=== PATIENT | male | born 1945 | race Caucasian/White ===

== ENCOUNTER → 2019-01-14 09:55 | Outpatient (CLI) | payer OTHER, SELFPAY ==
[2019-01-14 11:06] LABS: Alanine Aminotransferase 20 IU/L (21-72); Albumin 4.5 g/dL (3.5-5.0); Albumin Globulin Ratio 1.7 (1.0-2.8); Alkaline Phosphatase 59 U/L (38-126); Aspartate Aminotransferase 37 IU/L (17-59); Bilirubin Total 1.2 mg/dL (0.2-1.3); Blood Urea Nitrogen 21 mg/dL (9-20); Calcium 10.4 mg/dL (8.4-10.2); Carbon Dioxide 32 mmol/L (22-32); Chloride 101 mmol/L (98-107); Cholesterol 264 mg/dL (140-199); Estimated Glomerular Filt Rate > 60.0 mL/min (>60); Globulin 2.7 g/dL (1.7-4.1); Glucose 97 mg/dL (80-110); HDL Cholesterol 50 mg/dL (40-60); HEMOLYSIS < 15 (0-50); Potassium 4.9 mmol/L (3.4-5.1); Sodium 140 mmol/L (137-145); Total Protein 7.2 g/dL (6.3-8.2)
[2019-01-14 11:22] LABS: LDL Cholesterol Calculated 190 mg/dL (<100); Triglycerides 122 mg/dL (35-150)
== END ==
PROVIDERS: Visit Provider Internal Medicine
DX: Z13.1 Encounter for screening for diabetes mellitus (principal); Z13.6 Encounter for screening for cardiovascular disorders
CPT/HCPCS: 36415; 80053; 80061

== ENCOUNTER → 2019-04-12 10:21 | Outpatient (CLI) | payer OTHER, SELFPAY ==
[2019-04-12 11:20] LABS: Alanine Aminotransferase 13 IU/L (21-72); Albumin 4.4 g/dL (3.5-5.0); Albumin Globulin Ratio 1.4 (1.0-2.8); Alkaline Phosphatase 59 U/L (38-126); Aspartate Aminotransferase 29 IU/L (17-59); Bilirubin Total 0.7 mg/dL (0.2-1.3); Blood Urea Nitrogen 24 mg/dL (9-20); Calcium 10.1 mg/dL (8.4-10.2); Carbon Dioxide 30 mmol/L (22-32); Chloride 103 mmol/L (98-107); Cholesterol 198 mg/dL (140-199); Estimated Glomerular Filt Rate > 60.0 mL/min (>60); Globulin 3.1 g/dL (1.7-4.1); Glucose 93 mg/dL (80-110); HDL Cholesterol 45 mg/dL (40-60); HEMOLYSIS < 15 (0-50); LDL Cholesterol Calculated 132 mg/dL (<100); Potassium 4.8 mmol/L (3.4-5.1); Sodium 141 mmol/L (137-145); Total Protein 7.5 g/dL (6.3-8.2); Triglycerides 107 mg/dL (35-150)
== END ==
PROVIDERS: PCP Internal Medicine; Visit Provider Internal Medicine
DX: E78.00 Pure hypercholesterolemia, unspecified (principal); I25.10 Atherosclerotic heart disease of native coronary artery without angina pectoris
CPT/HCPCS: 36415; 80053; 80061

== ENCOUNTER → 2020-05-25 17:03 | Outpatient (CLI) | payer OTHER, SELFPAY | PROVIDERS: PCP Internal Medicine; Visit Provider Registered Nurse Diabetes Educator | DX: L60.9 Nail disorder, unspecified (principal) | CPT/HCPCS: 87070; 87075; 87077; 87102; 87107; 87186; 87205 ==

== ENCOUNTER → 2022-11-10 08:44 | Outpatient (CLI) | payer MEDICARE, SELFPAY ==
[2022-11-10 10:24] LABS: Alanine Aminotransferase 18 IU/L (<50); Albumin Globulin Ratio 1.7 (1.0-2.8); Alkaline Phosphatase 38 U/L (38-126); Aspartate Aminotransferase 26 IU/L (17-59); BUN Creatinine Ratio 25.6 (6-22); Bilirubin Total 0.3 mg/dL (0.2-1.3); Blood Urea Nitrogen 30 mg/dL (9-20); Calcium 9.5 mg/dL (8.4-10.2); Carbon Dioxide 28 mmol/L (22-32); Chloride 103 mmol/L (98-107); Cholesterol 219 mg/dL (140-199); Estimated Glomerular Filt Rate > 60 mL/min (>60); Globulin 2.4 g/dL (1.7-4.1); Glucose 98 mg/dL (80-110); HDL Cholesterol 44 mg/dL (40-60); HEMOLYSIS < 15 (0-50); LDL Cholesterol Calculated 152 mg/dL (<100); Potassium 4.3 mmol/L (3.4-5.1); Sodium 137 mmol/L (137-145); Total Protein 6.4 g/dL (6.3-8.2); Triglycerides 114 mg/dL (35-150)
== END ==
PROVIDERS: PCP Internal Medicine; Referring Provider Internal Medicine; Visit Provider Internal Medicine
DX: E78.00 Pure hypercholesterolemia, unspecified (principal); I25.10 Atherosclerotic heart disease of native coronary artery without angina pectoris
CPT/HCPCS: 36415; 80053; 80061

== ENCOUNTER 2023-02-01 10:49 | Day surgery (SDC) | payer MEDICARE, SELFPAY ==
[2023-01-24 15:02] VITALS: BMI 24.2
[2023-02-01] VITALS (11 sets, daily range): BP systolic 112–164; BP diastolic 62–99; PULSE 62–78; RESP 12–18; TEMP 36.2–36.4; O2SAT 94–97; BMI 24.3
--- NOTE | 2023-02-01 11:19 | PM.PREOP ---
Pre-operative Note Interval Note History & Physical reviewed/Exam performed by Physician: Yes Changes to H&P: No
[2023-02-01] MEDS: LACTATED RINGERS 1,000 ML 100 ML IV ×2 (11:31→13:15)
[2023-02-01] MEDS: CEFAZOLIN 2 GM/100 ML PREMIX 100 ML IV (12:06)
[2023-02-01] MEDS: BUPIVACAINE 0.5% (PF) 30 ML VIAL INJ (12:15)
--- NOTE | 2023-02-01 12:31 | SUR.OPER ---
Supine on padded OR bed, head on pillow, arms padded and tucked at sides, legs uncrossed, safety belt at thigh, tape over blanket over lower legs .
--- NOTE | 2023-02-01 13:41 | P.OP_ITS ---
Operative Date/Time/Diagnoses Date of procedure: 02/01/23 Time of procedure: 13:41 Pre-op diagnosis: bilateral inguinal hernia Post-op diagnosis: same Procedure & Clinicians Procedure: laparoscopic repair of bilateral inguinal hernia Same procedure as scheduled: Yes Indications: symptomatic bilateral inguinal hernia Surgeon: Moisés Esquivel Vegetable Packer: Navin Bustillo Anesthesia Type: General Operative Notes Findings: bialteral direct floor defect. Small indirect hernia right side Estimated Blood Loss (mL): 20 Procedure in detail: The patient was brought to the operating room and placed supine on the table. Bilateral sequential compression devices were applied. General anesthesia was induced and they were intubated with an endotracheal tube. A mancera cath was placed in sterile fashion. They received antibiotics prior to skin incision. They were prepped and draped in sterile fashion. Time-out performed. The skin was infiltrated with 0.25% bupivicaine. A 1 cm supra umbilical midline incision was made. The fascia was sharply incised and the abdomen entered traumatically. A 10mm balloon port was placed and pneumoperitoneum was established at 15mm Hg. Inspection of the abdomen demonstrated no evidence of injury upon entry. Two 5 mm ports were then placed under direct visualization in the right and left lower quadrant lateral to the rectus muscle. A right and left direct hernias were observed. Starting on the left side the peritoneum 4 cm superior to the deep inguinal ring between the medial umbilical ligament and the anterior superior iliac spine was incised. The medial preperitoneal dissection was carried out into the space of Retzius bluntly, the bladder was swept inferiorly, the pubis and David's ligament were identified. Next attention was turned towards the lateral aspect of the peritoneal flap. The preperitoneal fat with the testicular vessels was carefully dissected off the inferior peritoneal flap. The cord was carefully inspected there was no indirect hernia. The attachements to the direct hernia sac were divided and the direct defect was reduced. A large Bard 3D Max mesh was then placed into the abdomen and positioned such that the myopectineal orifice was completely covered with good overlap on all sides. The peritoneal flap was then repositioned back to its original position and a running V lock suture was used to close the peritoneum such that no bowel could herniate into the preperitoneal space. The area was examined for hemostasis. Next the right side was addressed. The peritoneum 4 cm superior to the deep inguinal ring between the medial umbilical ligament and the anterior superior iliac spine was incised. The medial preperitoneal dissection was carried out into the space of Retzius bluntly, the bladder was swept inferiorly, the pubis and David's ligament were identified. Next attention was turned towards the lateral aspect of the peritoneal flap. The preperitoneal fat with the testicular vessels was carefully dissected off the inferior peritoneal flap. The cord was carefully inspected there was a indirect hernia which was skeletonized off of the cord.. The attachements to the direct hernia sac were divided and the direct defect was reduced. A large Bard 3D Max mesh was then placed into the abdomen and positioned such that the myopectineal orifice was completely covered with good overlap on all sides. The peritoneal flap was then repositioned back to its original position and a running V lock suture was used to close the peritoneum such that no bowel could herniate into the preperitoneal space. The area was examined for hemostasis. The 5mm trocars were removed under direct visualization and pneumoperitoneum was deflated through the umbilical trocar, The fascia at the umbilicus was closed with 0-Vicryl in figure of 8 fashion, skin closed with 4-0 Monocyl followed by Dermabond. The sponge and instrument count at the end of the case was correct. Both testicles were entirely within the scrotum at the end of the case. The patient emerged from anesthsia was extubated and transferred to recovery in stable condition. Complications: none Post-operative Condition: stable Disposition: same day surgery
[2023-02-01] MEDS: OXYCODONE/ACETAMINOPHEN 5/325 TABLET 1 TAB PO (14:22)
[2023-02-01] MEDS: KETOROLAC 30 MG/ML VIAL 15 MG IV (15:15)
== END 2023-02-01 15:57 | disposition home or self-care (01) ==
PROVIDERS: PCP Internal Medicine; Referring Provider Surgery; Visit Provider Surgery
PROC: 0YQ64ZZ Repair Left Inguinal Region, Percutaneous Endoscopic Approach (ICD-10-PCS; CPT 49650; principal; 2023-02-01 11:45)
DX: K40.20 Bilateral inguinal hernia, without obstruction or gangrene, not specified as recurrent (principal)
CPT/HCPCS: 49650; 36415; 82962; 93005; 93010; J0690; J1885; J2704; J3010

== ENCOUNTER 2023-11-17 10:02 | Inpatient (IN) | payer MEDICARE, SELFPAY ==
[2023-11-17] VITALS (23 sets, daily range): BP systolic 101–176; BP diastolic 54–77; PULSE 67–117; RESP 10–32; TEMP 36.4–37.7; O2SAT 93–99; BMI 21.9; BMI 20.9
--- NOTE | 2023-11-17 10:04 | DI.CT.S_ITS ---
PROCEDURE: CT ANGIO HEAD AND NECK INDICATIONS: Sudden onset confusion TECHNIQUE: After the administration of intravenous contrast, 1 mm thick sections acquired from the aortic arch through the [place] of Landa. MIP reformats of the arterial vasculature were utilized. For radiation dose reduction, the following was used: automated exposure control, adjustment of mA and/or kV according to patient size. COMPARISON: None. FINDINGS: Image quality: Motion artifact in the mid neck obscures evaluation of proximal bilateral cervical ICA. Cerebral CT Angiogram: Internal carotid arteries: No acute findings. Atherosclerotic calcification the cavernous segments of both ICA without stenosis.66 No occlusion. No aneurysm. Anterior cerebral arteries: Unremarkable. No significant stenosis. No occlusion. No aneurysm. Middle cerebral arteries: Unremarkable. No significant stenosis. No occlusion. No aneurysm. Posterior cerebral arteries: Unremarkable. No significant stenosis. No occlusion. No aneurysm. Basilar artery: Unremarkable. No significant stenosis. No occlusion. No aneurysm. Vertebral arteries: Right vertebral artery dominance. The left diminutive intradural vertebral artery terminates in the posterior inferior cerebellar artery Dural venous sinuses: Unremarkable given phase of enhancement. Other: Arterial phase brain parenchyma is unremarkable. Neck CT Angiogram: Internal carotid arteries: Unremarkable. Motion artifact limits assessment, however, mild atherosclerotic plaque in both proximal ICA in present without evidence of significant stenosis. No dissection or occlusion. Common carotid arteries: Unremarkable. No significant stenosis. No dissection or occlusion. External carotid arteries: Unremarkable. No occlusion. Vertebral arteries: Unremarkable. No significant stenosis. No dissection or occlusion. Right vertebral artery dominance Other: Old healed right-sided rib fractures. Both lung apices are clear. Aortic Arch and Mediastinum: Partially visualized aortic arch unremarkable without evidence of aneurysm. Origins of the great vessels unremarkable. IMPRESSION: 1. Mild atherosclerotic vascular calcification without evidence of large vessel occlusion, significant stenosis or aneurysm in the head and neck. Approved by: Vinny Lockett M.D. on 11/17/2023 at 9:38
--- NOTE | 2023-11-17 10:04 | DI.CT.S_ITS ---
PROCEDURE: CT STROKE INDICATIONS: Sudden onset confusion TECHNIQUE: Noncontrast 4.5 mm thick angled axial sections acquired from the foramen magnum to the vertex, with coronal reformats. For radiation dose reduction, the following was used: automated exposure control, adjustment of mA and/or kV according to patient size. COMPARISON: None. FINDINGS: Image quality: Image degraded by moderate patient motion artifact. CSF spaces: Basal cisterns are patent. No extra-axial fluid collections. The ventricles are symmetric in size and shape. Brain: No intracranial bleeds or masses. There is cerebral volume loss for age, with resultant ventricular and sulcal prominence. There are periventricular and deep white matter chronic small vessel ischemic changes. There is intracranial internal carotid artery and intracranial vertebral artery atherosclerosis. Skull and face: Calvarium and visualized facial bones appear intact, without suspicious lesions. Sinuses: Visualized sinuses and mastoids are clear. IMPRESSION: 1. CT head without acute intracranial abnormalities or acute calvarial fractures. 2. Age-related senescent changes and sequela of chronic small vessel ischemic disease. Findings were discussed with Dr. Okeefe at 1020 hrs. This study fulfills neurological imaging criteria for inclusion or exclusion of acute stroke therapies based on available published neurological guidelines. Dictated by: Manolo Pablo M.D. on 11/17/2023 at 10:18 Approved by: Manolo Pablo M.D. on 11/17/2023 at 10:20
--- NOTE | 2023-11-17 10:11 | ED.NEUROSD ---
HPI - Neuro Symptoms/Deficit General Chief Complaint: Altered Mental Status Stated Complaint: Code Stroke, LKW 0830 Time Seen by Provider: 11/17/23 10:04 History of Present Illness HPI Narrative: Patient is a 78-year-old male history of CVA 10 years ago, hypertension hypercholesterolemia, coronary artery disease, aortic stenosis, presenting today with sudden onset of confusion. reports last known well was around 830 in the morning. She reports that he has had ongoing back and neck pain since October 26 he typically works at [employer] but he took off a couple days. They went to dinner last night. He has been sleeping in the living room due to severe pain. This morning she went to check on him he seemed very uncomfortable she wanted to get him something for pain he was going to go to the bathroom in the living room she tried to get him to actually go to the restroom. He is very confused about where he is month and out old he is. He seems uncomfortable and restless moving all extremities. EMS reports that glucose was 121. He is unable to follow commands but seems to be restless and moving all extremities. Upon further questioning and evaluation reports that she woke up and saw him at 8:30 a.m. but he was sleeping before then. Last known well is actually unclear. He also stop taking warfarin and number of years ago after his aortic valve replacement. Related Data Previous Rx's Medication Instructions Recorded ibuprofen 200 mg tablet 400 mg (2 x 200 mg) PO Q6H #60 tabs 02/01/23 cyclobenzaprine 5 mg tablet 5 mg PO TID PRN muscle spasm #12 10/27/23 tabs Allergies Allergy/AdvReac Type Severity Reaction Status Date / Time No Known Drug Allergies Allergy Verified 10/27/23 10:22 Patient History Medical History Bilateral inguinal hernia Vision disorder Stroke (~2012) Migraines Compression fracture (~1964) Measles Chicken pox Tinnitus (~2017) Hearing loss (~2017) Cataracts, bilateral (~2018) Hypertension (~2012) Aortic stenosis (~2012) Skin cancer (~2016) Coronary artery disease (~2012) Pure hypercholesterolemia (05/26/16) Erectile dysfunction (05/26/16) Benign prostatic hyperplasia with lower urinary tract symptoms (05/26/16) Multiple actinic keratoses (05/26/16) Surgical History Anesthesia S/P ascending aortic replacement (~03/2013) S/P aortic valve replacement (~03/2013) S/P CABG (coronary artery bypass graft) (~03/2013) Family History Father History of heart disease Mother Cancer Sister Kidney failure Grandfather Cancer Grandmother Cancer Social History marital status: household members: spouse lives independently: Yes occupational status: employed Smoking Status: Never smoker alcohol intake: current substance use type: does not use Smoking Status: Never smoker alcohol intake frequency: a few times a week Substance Use Type: does not use Exam Initial Vital Signs Initial Vital Signs: Vital Signs Temperature 99.9 F H 11/17/23 10:10 Pulse Rate 115 H 11/17/23 10:10 Respiratory Rate 26 H 11/17/23 10:10 Blood Pressure 176/77 H 11/17/23 10:10 Pulse Oximetry 99 11/17/23 10:10 Oxygen Delivery Method Room Air 11/17/23 10:10 GENERAL: [Well-appearing, well-nourished] and in [no acute] distress. HEENT: Head atraumatic,EOMI, pupils reactive, face symmetric, [moist] mucous membranes [EARS:] [Tympanic membranes visualized, no erythema or bulging, no hemotympanum] [PHARYNX:] [No erythema, no tonsillar exudate, no cervical lymphadenopathy] CARDIOVASCULAR: Regular rate and rhythm without murmurs, rubs or gallops. RESPIRATORY: Breath sounds equal bilaterally, no wheezes rales or rhonchi. ABDOMEN: Soft, nontender. Normoactive bowel sounds all 4 quadrants. No guarding or rebound. EXTREMITIES: Normal range of motion, no clubbing or edema. Neurovascularly intact NEUROLOGICAL: Alert and oriented x4. SKIN: Warm, dry, no laceration, no petechiae, no rashes or lesions. Scores NIH Stroke Scale Level of Conciousness: Alert, keenly responsive Ask month/age: Answers neither question correctly, aphasic, stuporous, coma Open/close eyes, close hand: Performs one task correctly Best gaze horizontal: Normal Visual mabry: No visual loss Facial palsy: Normal symetrical movement Left arm drift: No drift for full 10 sec Right arm drift: No drift for full 10 sec Left leg drift: No drift for full 5 sec Right leg drift: No drift for full 5 sec Limb ataxia: Absent Sensory on face/arms/legs: Normal, no sensory loss Best language: Severe aphasia, not much is understood, fragmented Dysarthria: Normal Extinction or inattention: No abnormality Total NIH Stroke scale score: 5 Course Orders Ordered: ED Orders 11/17/23 10:[address] angio head and neck Stat 11/17/23 10:19 EKG-12 Lead Stat 11/17/23 10:30 Complete Blood Count AUTO DIFF Stat Comprehensive Metabolic Panel Stat Ethanol (ETOH) Stat PTT Partial Thromboplastin Rosalio Stat Prothrombin Time INR Stat Troponin & CK Cardiac Panel Stat 11/17/23 10:40 Urinalysis and Microscopic Stat Urine Drug Screen, Rapid Stat 11/17/23 10:48 MR head/brain wo con Stat 11/17/23 11:00 Covid-19 + FLU A/B + RSV - PCR Stat 11/17/23 11:48 Chest [XR chest 1V] Stat 11/17/23 12:00 Blood Culture Stat Discontinued Medications Aspirin (Aspirin 81 Mg Chew Tab) 324 mg PO NOW ONE Stop: 11/17/23 11:40 Last Admin: 11/17/23 13:17 Dose: 324 mg Documented By: FABIANA Acetaminophen (Ofirmev) 1,000 mg in 100 mls @ 400 mls/hr IV NOW ONE Stop: 11/17/23 11:45 Last Infusion: 11/17/23 13:10 Dose: Infused Documented By: Admin: 11/17/23 11:39 Dose: 400 mls/hr Documented By: ELISE Ceftriaxone Sodium 2,000 mg/ (Sodium Chloride) 100 mls @ 200 mls/hr IV NOW ONE Stop: 11/17/23 14:53 Lorazepam (Lorazepam 2 Mg/Ml Inj) 0.5 mg IV NOW ONE Stop: 11/17/23 10:49 Last Admin: 11/17/23 13:18 Dose: 0.5 mg Documented By: FABIANA Vital Signs Vital signs: Vital Signs - 8 hr 11/17/23 10:10 11/17/23 10:17 11/17/23 10:17 Temperature 99.9 F H Pulse Rate 115 H 98 H Respiratory Rate 26 H Blood Pressure 176/77 H 176/77 H Pulse Oximetry 99 99 Oxygen Delivery Method Room Air 11/17/23 10:30 11/17/23 10:34 11/17/23 10:36 Temperature Pulse Rate 117 H 105 H 102 H Respiratory Rate 32 H 25 H 29 H Blood Pressure Pulse Oximetry 99 98 98 Oxygen Delivery Method Room Air 11/17/23 10:36 11/17/23 11:00 11/17/23 11:11 Temperature Pulse Rate 100 H 106 H Respiratory Rate 15 11 L Blood Pressure 165/75 H Pulse Oximetry 97 97 Oxygen Delivery Method Room Air 11/17/23 11:14 11/17/23 11:14 11/17/23 11:30 Temperature Pulse Rate 101 H Respiratory Rate Blood Pressure 164/74 H 155/71 H Pulse Oximetry 96 Oxygen Delivery Method Room Air 11/17/23 11:30 11/17/23 12:00 11/17/23 12:00 Temperature Pulse Rate 93 H 95 H Respiratory Rate 10 L 11 L Blood Pressure 151/70 H Pulse Oximetry 97 93 Oxygen Delivery Method MDM - Neuro Symptoms/Deficit Lab Data 11/17/23 10:30 11/17/23 10:30 Labs: Lab Results 11/17/23 11/17/23 11/17/23 Range/Units 10:30 10:40 10:40 WBC 11.3 H (4.5-11.0) X10^3/uL RBC 3.91 L (4.5-5.9) X10^6/uL Hgb 12.1 L (13.5-17.5) g/dL Hct 36.0 L (41-53) % MCV 92.1 (80-100) fL MCH 31.1 (26-34) PG MCHC 33.8 (30-36) % RDW 13.5 (11.6-14.8) % Plt Count 266 (150-400) X10^3/uL Neut % (Auto) 76.0 H (50-75) % Lymph % (Auto) 13.3 L (25-40) % [place] % (Auto) 10.2 (3-14) % Eos % (Auto) 0.2 L (2-4) % Baso % (Auto) 0.3 (0-2) % Neut # (Auto) 8600 H (7387-3211) /uL Lymph # (Auto) 1500 (9931-0113) /uL [place] # (Auto) 1200 H (0-900) /uL Eos # (Auto) 0 (0-450) /uL Baso # (Auto) 0 (0-100) /uL PT 13.0 H (9.4-12.5) SECONDS INR 1.1 (0.9-1.3) APTT 33 (25.1-36.5) SECONDS Sodium 137 (137-145) mmol/L Potassium 3.8 (3.4-5.1) mmol/L Chloride 105 (98-107) mmol/L Carbon Dioxide 25 (22-32) mmol/L BUN 26 H (9-20) mg/dL Creatinine 1.14 (0.66-1.25) mg/dL Estimated GFR > 60 (>60) mL/min BUN/Creatinine Ratio 22.8 H (6-22) Glucose 103 (80-110) mg/dL Calcium 9.6 (8.4-10.2) mg/dL Total Bilirubin 0.8 (0.2-1.3) mg/dL AST 29 (17-59) IU/L ALT 19 (<50) IU/L Alkaline Phosphatase 80 (38-126) U/L Total Creatine Kinase 47 L (55-170) U/L Troponin I < 0.012 (0.01-0.034) ng/mL Total Protein 7.2 (6.3-8.2) g/dL Albumin 3.8 (3.5-5.0) g/dL Globulin 3.4 (1.7-4.1) g/dL Albumin/Globulin Ratio 1.1 (1.0-2.8) Urine Color Yellow Urine Appearance Clear Urine pH 8.0 Normal (4.5-8.0) Ur Specific [place] 1.015 (1.000-1.035) Urine Protein Negative (Negative) Urine Glucose (UA) Negative (Negative) g/dL Urine Ketones Negative (NEGATIVE) Urine Occult Blood Negative (Negative) Urine Nitrate Negative (Negative) Urine Bilirubin Negative (NEGATIVE) Urine Urobilinogen 0.2 (0.2) E.U./dL Ur Leukocyte Esterase Negative (NEGATIVE) Urine RBC 0-1/hpf (0-5/HPF) Urine WBC 0-1/hpf (0-5/HPF) Ur Squamous Epith Cells None seen (0-5/HPF) Urine Bacteria None seen (None) Ur Culture Indicated? Cult not indicated Vol Urine Centrifuged 10ml (spun) U Opiates 300ng/mL cut Negative (Negative) Ur Oxycodone Screen Negative (Negative) Urine Methadone Screen Negative (Negative) Ur Barbiturates Screen Negative (Negative) U Tricyclic Antidepress Negative (Negative) Ur Phencyclidine Scrn Negative (Negative) Ur Amphetamines Screen Negative (Negative) U Methamphetamines Scrn Negative (Negative) Ur MDMA Scrn (Ecstasy) Negative (Negative) U Benzodiazepines Scrn Negative (Negative) Urine Cocaine Screen Negative (Negative) U Marijuana (THC) Screen Negative (Negative) Urine Specific [place] Normal (Normal) Ethyl Alcohol < 10 ( - 10) mg/dL Ur Creatinine Normal (Normal) SARS-CoV-2 (PCR) Influenza A (RT-PCR) (NEGATIVE) Influenza B (RT-PCR) (NEGATIVE) RSV (PCR) (Negative) 11/17/23 11/17/23 Range/Units 11:00 11:00 WBC (4.5-11.0) X10^3/uL RBC (4.5-5.9) X10^6/uL Hgb (13.5-17.5) g/dL Hct (41-53) % MCV (80-100) fL MCH (26-34) PG MCHC (30-36) % RDW (11.6-14.8) % Plt Count (150-400) X10^3/uL Neut % (Auto) (50-75) % Lymph % (Auto) (25-40) % [place] % (Auto) (3-14) % Eos % (Auto) (2-4) % Baso % (Auto) (0-2) % Neut # (Auto) (4669-3572) /uL Lymph # (Auto) (5369-0303) /uL [place] # (Auto) (0-900) /uL Eos # (Auto) (0-450) /uL Baso # (Auto) (0-100) /uL PT (9.4-12.5) SECONDS INR (0.9-1.3) APTT (25.1-36.5) SECONDS Sodium (137-145) mmol/L Potassium (3.4-5.1) mmol/L Chloride (98-107) mmol/L Carbon Dioxide (22-32) mmol/L BUN (9-20) mg/dL Creatinine (0.66-1.25) mg/dL Estimated GFR (>60) mL/min BUN/Creatinine Ratio (6-22) Glucose (80-110) mg/dL Calcium (8.4-10.2) mg/dL Total Bilirubin (0.2-1.3) mg/dL AST (17-59) IU/L ALT (<50) IU/L Alkaline Phosphatase (38-126) U/L Total Creatine Kinase (55-170) U/L Troponin I (0.01-0.034) ng/mL Total Protein (6.3-8.2) g/dL Albumin (3.5-5.0) g/dL Globulin (1.7-4.1) g/dL Albumin/Globulin Ratio (1.0-2.8) Urine Color Urine Appearance Urine pH (4.5-8.0) Ur Specific [place] (1.000-1.035) Urine Protein (Negative) Urine Glucose (UA) (Negative) g/dL Urine Ketones (NEGATIVE) Urine Occult Blood (Negative) Urine Nitrate (Negative) Urine Bilirubin (NEGATIVE) Urine Urobilinogen (0.2) E.U./dL Ur Leukocyte Esterase (NEGATIVE) Urine RBC (0-5/HPF) Urine WBC (0-5/HPF) Ur Squamous Epith Cells (0-5/HPF) Urine Bacteria (None) Ur Culture Indicated? Vol Urine Centrifuged U Opiates 300ng/mL cut (Negative) Ur Oxycodone Screen (Negative) Urine Methadone Screen (Negative) Ur Barbiturates Screen (Negative) U Tricyclic Antidepress (Negative) Ur Phencyclidine Scrn (Negative) Ur Amphetamines Screen (Negative) U Methamphetamines Scrn (Negative) Ur MDMA Scrn (Ecstasy) (Negative) U Benzodiazepines Scrn (Negative) Urine Cocaine Screen (Negative) U Marijuana (THC) Screen (Negative) Urine Specific [place] (Normal) Ethyl Alcohol ( - 10) mg/dL Ur Creatinine (Normal) SARS-CoV-2 (PCR) Cancelled Negative Influenza A (RT-PCR) Flu a negative (NEGATIVE) Influenza B (RT-PCR) Flu b negative (NEGATIVE) RSV (PCR) Negative (Negative) Point of Care Testing Glucose POC 101 Urine Dip Bedside Urine Glucose Negative Bedside Urine Bilirubin - Negative Bedside Urine Ketone - Negative Urine Specific [place] 1.010 Bedside Urine Occult Blood - Negative Bedside Urine pH 8.0 Bedside Urine Protein - Negative Bedside Urine Urobilinogen - Negative Bedside Urine Nitrite - Negative Bedside Urine Leukocytes - Negative Esterase Imaging Data CT scan - head: Radiologist's Impression: PROCEDURE: CT STROKE INDICATIONS: Sudden onset confusion TECHNIQUE: Noncontrast 4.5 mm thick angled axial sections acquired from the foramen magnum to the vertex, with coronal reformats. For radiation dose reduction, the following was used: automated exposure control, adjustment of mA and/or kV according to patient size. COMPARISON: None. FINDINGS: Image quality: Image degraded by moderate patient motion artifact. CSF spaces: Basal cisterns are patent. No extra-axial fluid collections. The ventricles are symmetric in size and shape. Brain: No intracranial bleeds or masses. There is cerebral volume loss for age, with resultant ventricular and sulcal prominence. There are periventricular and deep white matter chronic small vessel ischemic changes. There is intracranial internal carotid artery and intracranial vertebral artery atherosclerosis. Skull and face: Calvarium and visualized facial bones appear intact, without suspicious lesions. Sinuses: Visualized sinuses and mastoids are clear. IMPRESSION: 1. CT head without acute intracranial abnormalities or acute calvarial fractures. 2. Age-related senescent changes and sequela of chronic small vessel ischemic disease. Findings were discussed with Dr. Okeefe at 1020 hrs. This study fulfills neurological imaging criteria for inclusion or exclusion of acute stroke therapies based on available published neurological guidelines. Dictated by: Manolo Pablo M.D. on 11/17/2023 at 10:18 ECG Data Attestation: I personally reviewed and interpreted this ECG as follows: Prior ECG tracings: available for review Interpretation: Normal sinus rhythm rate 98 MS interval 248 QRS 80 QTC 457 low voltage no changes from prior artifact noted MDM Narrative Medical decision making narrative: MDM CC: Sudden onset confusion, code stroke Complicating co-morbidities: Prior CVA aortic stenosis Corroborating data: Medical records reviewed: yes Differential considered: CVA, TIA, sepsis Exam documented above, pertinent findings include: Very confused restless NIH stroke scale of 5 Lab Test results independently reviewed as above. Pertinent findings: WBC 11.3, urinalysis negative Independently reviewed EKG as above: Sinus rhythm rate 98 MS interval [address] changes low voltage Imaging studies independently reviewed: Noncontrast head without intracranial hemorrhage, CT angio mild atherosclerosis and vascular calcification without large vessel occlusion, chest x-ray Consultations: 10:20 Dr. Pablo radiology called noncontrast head CT negative for intracranial hemorrhage 10:40 stroke neurology consulted recommended MRI with DWI flare to help determine specific last known well if able. However based on history hard to specifically pinpoint last known well therefore not a candidate for TNK. Dr. Sarah hospitalist accepts patient Treatments: Aspirin 325 mg Re-evaluations: Patient actually seems to be improving a bit he is able to name some objects but still confused about age and date seems less restless Discussion: Discussion with family at bedside last known well is truly unknown. Patient has an aortic valve replacement took some time to find the MRI compatible card which it is. Patient is out of the window for TNK MRI scheduled for 1430. Patient is at risk for stroke supposed to be taking warfarin but has not for number of years. Patient also has low-grade temperature of 99.9? mild leukocytosis of 11.3 and tachycardic. No obvious source of infection blood cultures are pending. Would hold on antibiotics for now. Discharge Plan Departure Patient Disposition: Admitted As Inpatient Clinical Impression: CVA (cerebral vascular accident) Admit Date/Time: 11/17/23 12:23 Admit Provider: Giancarlo Sarah
[2023-11-17 10:47] LABS: Add Manual Diff / Slide Review NO; Basophils Absolute Auto 0 /uL (0-100); Basophils Percent Auto 0.3 % (0-2); Eosinophils Absolute Auto 0 /uL (0-450); Eosinophils Percent Auto 0.2 % (2-4); Hemoglobin 12.1 g/dL (13.5-17.5); Lymphocytes Absolute Auto 1500 /uL (1100-4500); Lymphocytes Percent Auto 13.3 % (25-40); Mean Corpuscular HGB Conc 33.8 % (30-36); Mean Corpuscular Hemoglobin 31.1 PG (26-34); Mean Corpuscular Volume 92.1 fL (80-100); Monocytes Absolute Auto 1200 /uL (0-900); Monocytes Percent Auto 10.2 % (3-14); Neutrophils Absolute Auto 8600 /uL (1500-7000); Platelet Count 266 X10^3/uL (150-400); Red Blood Cell Count 3.91 X10^6/uL (4.5-5.9); Red Cell Distribution Width 13.5 % (11.6-14.8); White Blood Cell Count 11.3 X10^3/uL (4.5-11.0)
--- NOTE | 2023-11-17 10:48 | DI.MRI.S_ITS ---
PROCEDURE: MR HEAD/BRAIN WO CON INDICATIONS: stroke TECHNIQUE: Non-contrast axial T1 spin echo, axial T2 fast spin echo, sagittal and axial FLAIR, coronal T2 fast spin echo, axial gradient echo, axial diffusion and ADC through the brain. COMPARISON: [facility], CT, CT STROKE, 11/17/2023, 10:08. [facility], CT, CT ANGIO HEAD AND NECK, 11/17/2023, 10:08. FINDINGS: Image quality: This examination is limited by involuntary motion artifact. CSF spaces: Ventricles appear symmetric in size and shape. Basal cisterns are patent. No extra-axial fluid collections. Brain: No intracranial mass effects. There is a small focus of remote hemorrhage seen within the deep white matter of the right frontal lobe, as on series 10, image 18. There is cerebral volume loss for age. There are periventricular and deep white matter chronic small vessel ischemic changes. Brainstem appears normal. Diffusion-weighted images show no acute infarct. No chronic ischemic insults. Normal intravascular flow voids are present. Skull and face: Calvarial bone marrow is normal in signal. Orbits are normal. Sinuses: There is [id number] mucosal thickening within the inferior left maxillary sinus. Minimal mucosal thickening can be seen elsewhere within the paranasal sinuses. No abnormal fluid is seen within the mastoid air cells. IMPRESSION: No findings of acute or subacute infarction can be seen. Likely remote hemorrhagic infarct involving the deep white matter of the right frontal lobe. Note is made of age-appropriate brain parenchymal volume loss and chronic small vessel ischemic changes. Additional findings: Focal left maxillary sinus disease Dictated by: Clyde Wilkinson M.D. on 11/17/2023 at 13:03 Approved by: Clyde Wilkinson M.D. on 11/17/2023 at 13:05
[2023-11-17 11:06] LABS: INR 1.1 (0.9-1.3)
--- NOTE | 2023-11-17 11:06 | PC.NURSE ---
Pt displays no weakness in extremities and is able to stand at bedside to use urinal. Pt remains confused, but able to respond more now than upon arrival. Pt has difficulty understanding commands and answering questions. Pt repeatedly states he is 27 and 39 when asked how old he is. Pt responds I dont know to questions regarding month, location, situation. Pt's son Zion at bedside who is an ER nurse. Zion reports pt's is on her way to the ER now with information regarding pt's valve replacement and is being driven by another family member.
[2023-11-17 11:08] LABS: PTT Partial Thromboplastin Tim 33 SECONDS (25.1-36.5)
[2023-11-17 11:13] LABS: Alanine Aminotransferase 19 IU/L (<50); Albumin 3.8 g/dL (3.5-5.0); Albumin Globulin Ratio 1.1 (1.0-2.8); Alkaline Phosphatase 80 U/L (38-126); Aspartate Aminotransferase 29 IU/L (17-59); BUN Creatinine Ratio 22.8 (6-22); Bilirubin Total 0.8 mg/dL (0.2-1.3); Blood Urea Nitrogen 26 mg/dL (9-20); Calcium 9.6 mg/dL (8.4-10.2); Carbon Dioxide 25 mmol/L (22-32); Chloride 105 mmol/L (98-107); Creatine Kinase 47 U/L (55-170); Estimated Glomerular Filt Rate > 60 mL/min (>60); Ethanol (ETOH) < 10 mg/dL; Globulin 3.4 g/dL (1.7-4.1); Glucose 103 mg/dL (80-110); HEMOLYSIS < 15 (0-50); Potassium 3.8 mmol/L (3.4-5.1); Sodium 137 mmol/L (137-145); Total Protein 7.2 g/dL (6.3-8.2)
[2023-11-17 11:16] LABS: Appearance Urine UA CLEAR; Bilirubin Urine UA NEGATIVE (NEGATIVE); Color Urine UA YELLOW; Glucose Urine UA NEGATIVE (Negative); Ketones Urine UA NEGATIVE (NEGATIVE); Leukocyte Esterase Urine UA NEGATIVE (NEGATIVE); Nitrite Urine UA NEGATIVE (Negative); Occult Blood Urine UA NEGATIVE (Negative); Protein Urine UA NEGATIVE (Negative); Specific Gravity Urine UA 1.015 (1.000-1.035); Urobilinogen Urine UA 0.2 E.U./dL (0.2)
--- NOTE | 2023-11-17 11:18 | PC.NURSE ---
Pt's and 2x sons at bedside now. Information on patient's heart valve replacement photo copied and given to MRI. Pt is asked who is here with him, pointing to pt's , pt responds yeah, my mom. Pt continues to have difficulty responding to questions and following commands, aphasic.
[2023-11-17 11:21] LABS: UR Morphine/Opiate cutoff 300 Negative (Negative); Ur Creatinine Normal (Normal); Ur Specific Gravity Normal (Normal); Urine Amphetamines Negative (Negative); Urine Barbiturates Negative (Negative); Urine Benzodiazepines Negative (Negative); Urine Cocaine Negative (Negative); Urine MDMA Negative (Negative); Urine Methadone Negative (Negative); Urine Methamphetamines Negative (Negative); Urine Oxycodone Negative (Negative); Urine Phencyclidine Negative (Negative); Urine Tetrahydrocannabinol Negative (Negative); Urine Tricyclic Antidepressant Negative (Negative); Urine pH Normal (Normal)
[2023-11-17 11:25] LABS: Troponin I < 0.012 ng/mL (0.01-0.034)
[2023-11-17 11:33] LABS: RBC Urine 0-1/HPF (0-5/HPF); Urine Volume 10mL (spun); WBC Urine 0-1/HPF (0-5/HPF)
[2023-11-17 11:34] LABS: Bacteria Urine None Seen; Culture Indicated Urine Cult Not Indicated; Squamous Epithelial Cell Urine None Seen (0-5/HPF)
[2023-11-17] MEDS: ACETAMINOPHEN IV 1,000 MG/100 ML VIAL 400 MG IV (11:39)
--- NOTE | 2023-11-17 11:48 | DI.RAD.S_ITS ---
PROCEDURE: XR CHEST 1V INDICATIONS: confusion TECHNIQUE: One view of the chest was acquired. COMPARISON: None. FINDINGS: Surgical changes and devices: CABG, valve. Lungs and pleura: Lungs are clear. No pleural effusions or pneumothorax. Mediastinum: Mediastinal contours appear normal. Heart size is top normal. Bones and chest wall: No suspicious bony lesions. Overlying soft tissues appear unremarkable. IMPRESSION: No evidence acute pulmonary process. Dictated by: Kevin Javed M.D. on 11/17/2023 at 13:04 Approved by: Kevin Javed M.D. on 11/17/2023 at 13:04
--- NOTE | 2023-11-17 11:59 | PM.HP.1 ---
History of Present Illness History of Present Illness Date Patient Seen: 11/17/23 Time Patient Seen: 11:59 Chief complaint: Code Stroke, LKW 0830 Narrative: 78-year-old male evaluated in the emergency department because of altered mental status and some degree of aphasia. His spouse apparently found him sitting in his chair when she awoke this morning with some difficulty speaking and seem to be confused disoriented etcetera. It was thought that he might be having some sort of acute neurologic event he was transported to the ER for evaluation. Patient had been complaining of severe neck and right shoulder discomfort since the end of October. He had been prescribed some medication via the walk-in clinic for this but apparently has not been taking it. Patient does have a known history of being resistant to taking any chronic medications. Patient himself really does not have any recall of events of this morning. His first event or recall of this morning is being in the ER. He seems to be intact from a neurologic standpoint to me although maybe a bit slow in answering questions In the ER he was found to be minimally febrile with a temperature 99.9?, tachycardic to 120 rosa, minimally hypertensive in the 160s over 70s with a normal oxygen saturation Lab work shows elevated WBC at 11,300 with a left shift. Chemistries unremarkable. Urine unremarkable. Head CT unremarkable CT angiogram of the head and neck unremarkable Chest x-ray pending. EKG shows sinus tach Patient has MRI scheduled in his admitted for further evaluation Patient with long history of cardiac issues including aortic valve replacement with a bovine aortic valve in 2012 also requiring replacement of his ascending aorta with a tube graft and coronary artery bypass graft at the same time. He subsequently has discontinued all of his usual medications (he did that within a year of his surgery) in his remained off medications and to the best of my knowledge has not had cardiac care for the last decade. No echocardiogram are available in the [facility] record [facility] Medical History Bilateral inguinal hernia Vision disorder Stroke (~2012) Migraines Compression fracture (~1964) Measles Chicken pox Tinnitus (~2017) Hearing loss (~2017) Cataracts, bilateral (~2019) Hypertension (~2012) Aortic stenosis (~2012) Skin cancer (~2016) Coronary artery disease (~2012) Pure hypercholesterolemia (05/26/16) Erectile dysfunction (05/26/16) Benign prostatic hyperplasia with lower urinary tract symptoms (05/26/16) Multiple actinic keratoses (05/26/16) Surgical History Anesthesia S/P ascending aortic replacement (~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) S/P aortic valve replacement (~03/2013) S/P CABG (coronary artery bypass graft) (~03/2013) Family History Father History of heart disease Mother Cancer Sister Kidney failure Grandfather Cancer Grandmother Cancer Social History marital status: household members: spouse lives independently: Yes occupational status: employed Smoking Status: Never smoker alcohol intake: current substance use type: does not use Meds Home Medications and Allergies Home Medications Medication Instructions Recorded Confirmed Type ibuprofen 200 mg tablet 400 mg (2 x 200 mg) PO Q6H #60 tabs 02/01/23 10/27/23 Rx cyclobenzaprine 5 mg tablet 5 mg PO TID PRN muscle spasm #12 10/27/23 10/27/23 Rx tabs Allergies Allergy/AdvReac Type Severity Reaction Status Date / Time No Known Drug Allergies Allergy Verified 10/27/23 10:22 Review of Systems Review of Systems ROS: Yes All systems reviewed with the patient and are negative except as otherwise documented Exam Vital Signs (past 8 hours): - 11/17/23 10:10 11/17/23 10:17 11/17/23 10:17 Temperature 99.9 F H Pulse Rate 115 H 98 H Respiratory Rate 26 H Blood Pressure 176/77 H 176/77 H Pulse Oximetry 99 99 Oxygen Delivery Method Room Air 11/17/23 10:30 11/17/23 10:34 11/17/23 10:36 Temperature Pulse Rate 117 H 105 H 102 H Respiratory Rate 32 H 25 H 29 H Blood Pressure Pulse Oximetry 99 98 98 Oxygen Delivery Method Room Air 11/17/23 10:36 11/17/23 11:00 11/17/23 11:11 Temperature Pulse Rate 100 H 106 H Respiratory Rate 15 11 L Blood Pressure 165/75 H Pulse Oximetry 97 97 Oxygen Delivery Method Room Air 11/17/23 11:14 11/17/23 11:14 Temperature Pulse Rate 101 H Respiratory Rate Blood Pressure 164/74 H Pulse Oximetry 96 Oxygen Delivery Method Room Air Oxygen Delivery Method Room Air Narrative Exam Narrative: Elderly male in no obvious distress lying on a [facility] emergency department HEENT-normocephalic atraumatic PERRLA EOMs intact Neck-no lymphadenopathy no bruits Lungs-clear anteriorly and posteriorly no wheezes no crackles good breath sounds Heart-regular rate and rhythm Abdomen positive bowel tones soft nontender nondistended Extremities-no cyanosis clubbing or edema Neuro-alert and oriented x3 no cranial nerve defects muscle strength normal and symmetrical upper and lower extremities. No abnormal reflexes. Gait not tested Objective Labs 11/17/23 10:30 11/17/23 10:30 Labs: Laboratory Results - last 24 hr 11/17/23 11/17/23 11/17/23 10:30 10:40 10:40 WBC 11.3 H RBC 3.91 L Hgb 12.1 L Hct 36.0 L MCV 92.1 MCH 31.1 MCHC 33.8 RDW 13.5 Plt Count 266 Neut % (Auto) 76.0 H Lymph % (Auto) 13.3 L [place] % (Auto) 10.2 Eos % (Auto) 0.2 L Baso % (Auto) 0.3 Neut # (Auto) 8600 H Lymph # (Auto) 1500 [place] # (Auto) 1200 H Eos # (Auto) 0 Baso # (Auto) 0 PT 13.0 H INR 1.1 APTT 33 Sodium 137 Potassium 3.8 Chloride 105 Carbon Dioxide 25 BUN 26 H Creatinine 1.14 Estimated GFR > 60 BUN/Creatinine Ratio 22.8 H Glucose 103 Calcium 9.6 Total Bilirubin 0.8 AST 29 ALT 19 Alkaline Phosphatase 80 Total Creatine Kinase 47 L Troponin I < 0.012 Total Protein 7.2 Albumin 3.8 Globulin 3.4 Albumin/Globulin Ratio 1.1 Urine Color Yellow Urine Appearance Clear Urine pH 8.0 Normal Ur Specific [place] 1.015 Urine Protein Negative Urine Glucose (UA) Negative Urine Ketones Negative Urine Occult Blood Negative Urine Nitrate Negative Urine Bilirubin Negative Urine Urobilinogen 0.2 Ur Leukocyte Esterase Negative Urine RBC 0-1/hpf Urine WBC 0-1/hpf Ur Squamous Epith Cells None seen Urine Bacteria None seen Ur Culture Indicated? Cult not indicated Vol Urine Centrifuged 10ml (spun) U Opiates 300ng/mL cut Negative Ur Oxycodone Screen Negative Urine Methadone Screen Negative Ur Barbiturates Screen Negative U Tricyclic Antidepress Negative Ur Phencyclidine Scrn Negative Ur Amphetamines Screen Negative U Methamphetamines Scrn Negative Ur MDMA Scrn (Ecstasy) Negative U Benzodiazepines Scrn Negative Urine Cocaine Screen Negative U Marijuana (THC) Screen Negative Urine Specific [place] Normal Ethyl Alcohol < 10 Ur Creatinine Normal SARS-CoV-2 (PCR) 11/17/23 11:00 WBC RBC Hgb Hct MCV MCH MCHC RDW Plt Count Neut % (Auto) Lymph % (Auto) [place] % (Auto) Eos % (Auto) Baso % (Auto) Neut # (Auto) Lymph # (Auto) [place] # (Auto) Eos # (Auto) Baso # (Auto) PT INR APTT Sodium Potassium Chloride Carbon Dioxide BUN Creatinine Estimated GFR BUN/Creatinine Ratio Glucose Calcium Total Bilirubin AST ALT Alkaline Phosphatase Total Creatine Kinase Troponin I Total Protein Albumin Globulin Albumin/Globulin Ratio Urine Color Urine Appearance Urine pH Ur Specific [place] Urine Protein Urine Glucose (UA) Urine Ketones Urine Occult Blood Urine Nitrate Urine Bilirubin Urine Urobilinogen Ur Leukocyte Esterase Urine RBC Urine WBC Ur Squamous Epith Cells Urine Bacteria Ur Culture Indicated? Vol Urine Centrifuged U Opiates 300ng/mL cut Ur Oxycodone Screen Urine Methadone Screen Ur Barbiturates Screen U Tricyclic Antidepress Ur Phencyclidine Scrn Ur Amphetamines Screen U Methamphetamines Scrn Ur MDMA Scrn (Ecstasy) U Benzodiazepines Scrn Urine Cocaine Screen U Marijuana (THC) Screen Urine Specific [place] Ethyl Alcohol Ur Creatinine SARS-CoV-2 (PCR) Cancelled Assessment & Plan Assessment & Plan narrative: 1. Altered mental status with aphasia other neurologic symptoms-patient did present with low-grade fever and leukocytosis this could be an infectious etiology. However urine is negative and there has no clear an obvious evidence of respiratory component or other etiology at this time. Certainly patient is at high-risk for a vascular neurologic event given his cardiac history etcetera. MRI is still pending. Could also be related to some sort of medication mismanagement although that is seems much less likely given this patient who seems hesitant to take medication at all and apparently has not been taking any the meds that were prescribed at the walk-in clinic for his neck and shoulder pain. This point will proceed with neurologic evaluation as above with MRI, echocardiography etcetera 2. Hypertension-will tolerate his current degree of hypertension in the setting of a possible CVA. 3. Cardiac-patient will be getting an echocardiogram as part of his stroke evaluation will need to follow up on his known aortic valve and ascending aortic issues make sure things are stable there. Continue on telemetry looking for evidence atrial fibrillation as a possible source of a vascular neurologic event. Patient does have a history of atrial flutter postoperatively apparently but no recurrence that anyone is aware of. 4. Code status-full code as per patient's request which is entirely appropriate 5. VTE prophylaxis-given negative head CT Lovenox is certainly appropriate and has been ordered 6. Disposition-patient will be seen by skilled therapies including PT OT and speech therapy and depending on his clinical course over the next day or 2 will help determine next steps for disposition and placement if necessary. PROFEE Charge Codes Initial inpatient/observation care: [id number]
[2023-11-17 12:13] LABS: COVID-19 CEPHEID 4-PLEX PCR Negative (Negative); Influenza A - CEPHEID Flu A NEGATIVE (NEGATIVE); Influenza B - CEPHEID Flu B NEGATIVE (NEGATIVE); Respiratory Syncytial Virus Negative (Negative)
[2023-11-17] MEDS: ASPIRIN 81 MG CHEW TAB 324 MG PO (13:17)
[2023-11-17] MEDS: LORazepam 2 MG/ML INJ 0.5 MG IV (13:18)
--- NOTE | 2023-11-17 14:21 | PC.NURSE ---
Pt alert and oriented x4, able to clearly communicate with myself, he was able to tell me his correct age and the month of November. Pt states it's just my opinion, but I dont think I had a stroke. Pt informed of waiting for MRI results, repositioned in bed. Call light in reach, spouse at bedside.
[2023-11-17] MEDS: cefTRIAXone 2,000 MG in SODIUM CHLORIDE 0.9% 100 ML 200 MG IV (15:20)
--- NOTE | 2023-11-17 16:58 | DI.ECHO.S_ITS ---
[facility]---------+ [facility] +---------+ : : [address] : [place] : : : : [id number] : : : : Phone: [phone]+ Echocardiogram Report + + :Name: ZAINAB ARIAS Study Date: 11/18/2023 Height: 72 in : :[facility] ReadingLocation: Weight: 161 lb : : Gender: Male BSA: 1.9 m2 : :: 1945 Age: 78 yrs BP: 115/72 mmHg: :Reason For Study: CVA, AVR : :Ordering Physician: KAIT, : :PASCUAL Douglas Performed By: Lucy Guardado : :Referring: PASCUAL CARBALLO : + + Interpretation Summary The left ventricle is normal in size. The ejection fraction is estimated to be 60-65%. There are no focal wall motion abnormalities. Diastolic parameters suggest probable normal left ventricular diastolic function and normal filling pressures. The right ventricle is normal in size and function. The right ventricular systolic pressure is estimated to be at least 25 mmHg based on an estimated right atrial pressure of 3 mm Hg. The left atrial size is normal. There is a bioprosthetic aortic valve. The peak aortic velocity is 2.7 m/sec. The peak aortic velocity on the previous exam was 1.8 m/sec. There is mild to moderate aortic regurgitation. Compared to the prior echo study, there has been an increase in the severity of aortic regurgitation. The aortic root is moderately dilated. Procedure: A two-dimensional transthoracic echocardiogram with color flow and Doppler was performed. The study quality was technically adequate. Comparison is made with the echocardiogram of 05/10/2013. The heart rate ranged between 60-76 bpm during the study. Left Ventricle: The left ventricle is normal in size. Left ventricular wall thickness is mildly increased. The ejection fraction is estimated to be 60- 65%. There are no focal wall motion abnormalities. Diastolic parameters suggest probable normal left ventricular diastolic function and normal filling pressures. Right Ventricle: The right ventricle is normal in size and function. Atria: The left atrial size is normal. Right atrial size is normal. There is no Doppler evidence for an interatrial shunt. Mitral Valve: There is mild mitral annular calcification. Suspect mitral annulus ring. There is mild mitral regurgitation. Aortic Valve: There is a bioprosthetic aortic valve. The peak aortic velocity is 2.7 m/sec. The peak aortic velocity on the previous exam was 1.8 m/sec. The aortic valve mean gradient is 16 mmHg. There is mild to moderate aortic regurgitation. Compared to the prior echo study, there has been an increase in the severity of aortic regurgitation. Tricuspid Valve: The tricuspid valve is normal in structure and function. There is mild tricuspid regurgitation. The right ventricular systolic pressure is estimated to be at least 25 mmHg based on an estimated right atrial pressure of 3 mm Hg. Pulmonic Valve: The pulmonic valve leaflets are thin and pliable; valve motion is normal. There is trace pulmonic regurgitation. Great Vessels: The aortic root is moderately dilated. The ascending aorta is normal in size. The IVC is of normal diameter and collapses greater than 50% with a sniff. This suggests a low right atrial pressure of 3 mm Hg. Pericardium/ Pleura There is no pericardial effusion. There is no pleural effusion. MMode/2D Measurements & Calculations LVIDd: 4.9 cm LVOT diam: 2.2 cm LVIDs: 3.0 cm Ao root diam: 5.3 cm FS: 39.3 % asc Aorta Diam: 3.4 cm IVSd: 1.1 cm Ao Arch Diam (Prox Trans): 3.1 cm LVPWd: 1.1 cm LV [place]. diameter/BSA (cm/m^2): 2.5 LV sys. diameter/BSA (cm/m^2): 1.5 LA A2 area: 17.6 cm2 RA long axis: 5.8 cm LA A4 area: 14.7 cm2 RA area: 19.7 cm2 LA length (vol): 4.4 cm RA vol: 56.3 ml LA vol: 50.1 ml RA : 29.0 ml/m2 LA vol index: 25.8 ml/m2 IVC diam: 1.4 cm RVD1 (basal): 4.0 cm RVD2 (mid): 3.0 cm TAPSE: 1.6 cm Doppler Measurements & Calculations Ao V2 max: 274.4 cm/sec LVOT Max Sloan: 78.7 cm/sec Ao V2 mean: 184.7 cm/sec LV V1 max P.5 mmHg Ao max P.1 mmHg LV V1 VTI: 18.0 cm Ao mean P.4 mmHg HUA(I,D): 1.3 cm2 Ao V2 VTI: 51.7 cm HUA(V,D): 1.1 cm2 sev ratio: 0.35 HUA indexed to BSA (cm^2/m^2): 0.69 MV E max sloan: 78.6 cm/sec TR max sloan: 232.7 cm/sec MV A max sloan: 63.4 cm/sec TR max P.7 mmHg MV E/A: 1.2 PA pr(Accel): 34.5 mmHg Med Peak E' Sloan: 8.5 cm/sec E/E' med: 9.3 Lat Peak E' Sloan: 10.3 cm/sec E/E' lat: 7.6 E/e' average: 8.5 MV dec time: 0.22 sec MVA(VTI): 2.7 cm2 MV V2 mean: 56.9 cm/sec SV(LVOT): 69.4 ml MV mean P.5 mmHg MV V2 VTI: 25.4 cm Reading Physician:02:22 PM
[2023-11-17] MEDS: ACETAMINOPHEN 325 MG TABLET 650 MG PO (17:50)
--- NOTE | 2023-11-17 19:14 | PC.NURSE ---
Patient arrived to the room this evening approximately 1700. He is A&OX3, NIH zero. He appears slightly delayed with verbal responses, but answers questions appropriately. VSS, afebrile on RA. He reports pain to neck and shoulders 3-4/10 and accepted tylenol prn with good effect. Family supportive at bedside, oriented to room, bed alarm placed.tele placed, Admission assessment completed. MD Sarah notified of request to know MRI results and informed they were negative for CVA. Cotinuous monitoring.
[2023-11-17] MEDS: ATORVASTATIN 20 MG TABLET PO (20:48)
[2023-11-18 05:25] VITALS: BP 115/72; PULSE 80; RESP 16; TEMP 36.4; O2SAT 97
[2023-11-18 07:00] VITALS: O2SAT 97
[2023-11-18 07:08] LABS: Add Manual Diff / Slide Review NO; Basophils Absolute Auto 0 /uL (0-100); Basophils Percent Auto 0.4 % (0-2); Eosinophils Absolute Auto 100 /uL (0-450); Hematocrit 34.9 % (41-53); Hemoglobin 11.7 g/dL (13.5-17.5); Lymphocytes Absolute Auto 1100 /uL (1100-4500); Lymphocytes Percent Auto 12.9 % (25-40); Mean Corpuscular HGB Conc 33.6 % (30-36); Mean Corpuscular Hemoglobin 30.9 PG (26-34); Monocytes Absolute Auto 900 /uL (0-900); Monocytes Percent Auto 11.2 % (3-14); Neutrophils Absolute Auto 6100 /uL (1500-7000); Neutrophils Percent Auto 74.5 % (50-75); Platelet Count 266 X10^3/uL (150-400); Red Blood Cell Count 3.79 X10^6/uL (4.5-5.9); Red Cell Distribution Width 13.2 % (11.6-14.8); White Blood Cell Count 8.2 X10^3/uL (4.5-11.0)
[2023-11-18] MEDS: ENOXAPARIN 40 MG/0.4 ML SYRINGE SUBCUT (09:09)
[2023-11-18] MEDS: ASPIRIN EC 81 MG TABLET PO (09:09)
[2023-11-18 10:44] LABS: Acinetobacter calcoa-baumannii Not Detected (Not Detect); Bacteroides fragilis Not Detected (Not Detect); Candida albicans Not Detected (Not Detect); Candida auris Not Detected (Not Detect); Candida glabrata Not Detected (Not Detect); Candida krusei Not Detected (Not Detect); Candida parapsilosis Not Detected (Not Detect); Candida tropicalis Not Detected (Not Detect); Cryptococcus neoformans/gatti Not Detected (Not Detect); Enterobacter cloacae complex Not Detected (Not Detect); Enterobacterales Not Detected (Not Detect); Enterococcus faecalis Not Detected (Not Detect); Enterococcus faecium Not Detected (Not Detect); Haemophilus influenzae Not Detected (Not Detect); Klebsiella aerogenes Not Detected (Not Detect); Listeria monocytogenes Not Detected (Not Detect); Neisseria meningitidis Not Detected (Not Detect); Proteus species Not Detected (Not Detect); Pseudomonas aeruginosa Not Detected (Not Detect); Salmonella species Not Detected (Not Detect); Serratia marcescens Not Detected (Not Detect); Staphylococcus epidermidis Not Detected (Not Detect); Staphylococcus lugdunensis Not Detected (Not Detect); Staphylococcus species Not Detected (Not Detect); Stenotrophomonas maltophilia Not Detected (Not Detect); Streptococcus agalactiae (Gr B Not Detected (Not Detect); Streptococcus pneumonia Not Detected (Not Detect); Streptococcus pyogenes (Gr A) Not Detected (Not Detect); Streptococcus species Detected (Not Detect)
--- NOTE | 2023-11-18 11:36 | P.PN_ITS ---
Subjective Subjective Date Patient Seen: 11/18/23 Exam Vital Signs (past 8 hours): - 11/18/23 05:25 11/18/23 07:00 Temperature 97.6 F Pulse Rate 80 Respiratory Rate 16 Blood Pressure 115/72 Pulse Oximetry 97 97 Oxygen Delivery Method Room Air Oxygen Flow Rate 0 0 Oxygen Delivery Method Room Air Oxygen Flow Rate 0 Objective Labs 11/18/23 06:45 11/17/23 10:30 Labs: Laboratory Results - last 24 hr 11/17/23 11/17/23 11/18/23 11:00 12:00 06:45 WBC 8.2 RBC 3.79 L Hgb 11.7 L Hct 34.9 L MCV 92.0 MCH 30.9 MCHC 33.6 RDW 13.2 Plt Count 266 Neut % (Auto) 74.5 Lymph % (Auto) 12.9 L [place] % (Auto) 11.2 Eos % (Auto) 1.0 L Baso % (Auto) 0.4 Neut # (Auto) 6100 Lymph # (Auto) 1100 [place] # (Auto) 900 Eos # (Auto) 100 Baso # (Auto) 0 A.calcoaceticus-baumannii cmplx PCR Not detected Bacteroides fragilis Not detected Andie albicans (PCR) Not detected Andie auris (PCR) Not detected C. glabrata (PCR) Not detected C. krusei (PCR) Not detected C. parapsilosis (PCR) Not detected C. tropicalis (PCR) Not detected SARS-CoV-2 (PCR) Negative C. neoform/gattii (PCR) Not detected Enterobacterales (PCR) Not detected E. cloacae complex PCR Not detected Enterococc faecalis PCR Not detected Enterococc faecium PCR Not detected E. coli (PCR) Not detected H. influenzae (PCR) Not detected Influenza A (RT-PCR) Flu a negative Influenza B (RT-PCR) Flu b negative Klebsiella aerogenes (PCR) Not detected Klebsiella oxytoca PCR Not detected Klebsiella pneumoniae Not detected List. monocytogenes PCR Not detected N. meningitidis (PCR) Not detected Proteus species (PCR) Not detected RSV (PCR) Negative Salmonella spp. (PCR) Not detected Serratia marcescens PCR Not detected Staphylococcus sp PCR Not detected Staph aureus (PCR) Not detected mecA/C & MREJ Resist Gene Not applicable mecA/C-Methicil Resis Gene Not applicable mcr-1 Colistin Res Gene PCR Not applicable Staph epidermidis (PCR) Not detected Staph lugdunensis PCR Not detected S. maltophilia (PCR) Not detected Streptococcus sp PCR Detected Group A Strep (PCR) Not detected Strep agalactiae (PCR) Not detected Strep pneumoniae (PCR) Not detected P. aeruginosa (PCR) Not detected Avinash/B-Vanco Res Genes Not applicable blaIMP Car res Gene PCR Not applicable KPC-Carbap Res Gene PCR Not applicable blaNDM Car Res Gene PCR Not applicable OXA-48 Carbapenem Resis Gene (PCR) Not applicable blaVIM Car Res Gene PCR Not applicable CTX-M Gene Resistance (PCR) Not applicable [facility] Medical History Bilateral inguinal hernia Vision disorder Stroke (~2012) Migraines Compression fracture (~1964) Measles Chicken pox Tinnitus (~2017) Hearing loss (~2017) Cataracts, bilateral (~2018) Hypertension (~2012) Aortic stenosis (~2012) Skin cancer (~2016) Coronary artery disease (~2012) Pure hypercholesterolemia (05/26/16) Erectile dysfunction (05/26/16) Benign prostatic hyperplasia with lower urinary tract symptoms (05/26/16) Multiple actinic keratoses (05/26/16) Surgical History Anesthesia S/P ascending aortic replacement (~03/2013) S/P aortic valve replacement (~03/2013) S/P CABG (coronary artery bypass graft) (~03/2013) Family History Father History of heart disease Mother Cancer Sister Kidney failure Grandfather Cancer Grandmother Cancer Social History marital status: household members: spouse lives independently: Yes occupational status: employed Smoking Status: Never smoker alcohol intake: current substance use type: does not use Assessment & Plan Assessment & Plan narrative: Pt is a 78yo man with hyperlipidemia and CAD who presented with altered mental status and aphasia, concerning for CVA. CVA work-up was negative, however, with normal CT/CTA and MRI. 1) Altered mental status with aphasia: Symptoms resolved. Unclear etiology. Negative CVA work-up. Echo pending, completed this morning. Possible infectious cause with elevated WBC count and isolated fever in the ED. WBC count now normal range this morning. Blood cultures now growing Strep in 09/08. - F/U Echo results - Pt given single dose IV Ceftriaxone yesterday. Will repeat today due to positive culture. F/U for sensitivities. Pt certainly not showing any signs/symptoms of infection currently - Recommend starting Aspirin 81mg as an outpatient in the event was TIA 2) HTN: BP now in good range 3) CV: No evidence of atrial fibrillation on telemetry thus far, but pt does have hx of atrial flutter postoperatively. - F/U Echo FEN: General diet Code: Full DVT ppx: Lovenox Dispo: Pending return of culture speciation and sensitivities tomorrow.
--- NOTE | 2023-11-18 11:45 | PT.IIE ---
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) S/P CABG (coronary artery bypass graft) (~03/2013) Medical History (Last Reviewed 11/17/23 @ 12:04 by Giancarlo Sarah MD) Aortic stenosis (~2012) Benign prostatic hyperplasia with lower urinary tract symptoms (05/26/16) Bilateral inguinal hernia Cataracts, bilateral (~2018) Chicken pox Compression fracture (~1964) Coronary artery disease (~2012) Erectile dysfunction (05/26/16) Hearing loss (~2017) Hypertension (~2012) Measles Migraines Multiple actinic keratoses (05/26/16) Pure hypercholesterolemia (05/26/16) Skin cancer (~2016) Stroke (~2012) Tinnitus (~2017) Vision disorder Physical Therapy Inpatient Evaluation/Re-Eval M1 PT/OT-IP Prior Functional Status Start: 11/18/23 13:22 Freq: NEEDED Status: Active Protocol: Document 11/18/23 11:45 AB (Rec: 11/18/23 13:38 AB [id number]) Medical Review Prior Functional Status Medical History Reviewed Yes Communication able to make needs known Mobility and Gait pt stated that he was independent with all mobilities and ambulation without AD Social History Household Members spouse Living Arrangements House Number of Floors (Floors) One Floor Number of Stairs To Enter/Railing? 1 step to enter the house Home Environment Standard Height Toilet,Walk in Shower,Tub/Shower Home Equipment Hand Held Shower,Grab Bars In Shower M2 PT-IP Current Condition Start: 11/18/23 13:22 Freq: NEEDED Status: Active Protocol: Document 11/18/23 11:45 AB (Rec: 11/18/23 13:38 AB [id number]) Physical Therapy Current Condition Current Condition Evaluation Date 11/18/23 Treatment Diagnosis AMS; difficulty in walking Onset Date 11/18/23 M3 PT-IP Subjective Start: 11/18/23 13:22 Freq: NEEDED Status: Active Protocol: Document 11/18/23 11:45 AB (Rec: 11/18/23 13:38 AB [id number]) Subjective Physical Therapy Visit Type Type Initial Evaluation Visit Start Time 11:45 Visit Stop Time 12:10 Number of SLIVER CUTTER Visits 0 Physical Therapy Visit Comments Patient Comments agreeable to do PT Therapy Pain Assessment Pain When Pain Assessed At Rest Pain Present Pain Present Pain Reported Location neck/back Pain Management Techniques Distraction,Modification of Treatment,Timing of Activity with Medications M4 PT-IP Mobility and Gait Start: 11/18/23 13:22 Freq: NEEDED Status: Active Protocol: Document 11/18/23 11:45 AB (Rec: 11/18/23 13:38 AB [id number]) PT-Bed Mobility Assessment Rolling Level of Assist Independent Supine to Sit Supine to Sit Independent PT-Transfer Assessment Sit to and From Stand Sit to and from Stand Independent Equipment Transfer Assistive Device None Orthotic/Prosthetic Devices or Brace: No Transfers Transfer Destination Bed,Chair Transfer Technique ambulated Transfer Ability Level of Assist Independent Comments Mobility Comments pt sitting on the chair and agreeable to do PT. spouse in room. per ED note: pt came in due to AMS. pt with c/o neck /back pain and had been taking pain meds for a few days but spouse found pt having confusion. pt admitted to r/o CVA and has imaging is unremarkable for CVA. pt stated that he feels back to his normal self and neck/ shoulder pain is better due to pain meds that was given to him. stated that he has been waiting for outpt PT for his neck/shoulder pain but has a 1 month waitlist. pt completed sit to stand mod I and ambulated in room without AD SBA. increase RLE ER noted. pt also presents with forward head and shoulder posture. cued to correct. pt sat on EOB and demonstrated bed mobility I. pt agreed to ambulate in the hallway and do stairs. pt ambulated ~ 150 ft without AD SBA. presents with slight antalgic gait but without LOB. pt completed up/down platform step without AD SBA. completed 2 sets. pt ambulated back to his room and sat back on the chair. checked/limited assessment conducted for pt's cervical and pt presents with forward head and shoulder posture with B traps tighness R>L. Limited ROM with extension, lateral flexion and rotation. educated pt on posture, chin tucks, scapular retraction , traps and scalene streteching. pt understood. informed pt to pursue outpt PT to address cervical/shoulder issues further. informed that no further PT indicated in hospital and pt agreed. pt can be independent in room for mobility without AD. left pt seated on the chair with spouse. Gait Assessment Gait Gait Assistance Required: Standby Assistance Distance (Feet) 150 Able to Maintain Weight Bearing Status Yes During Gait Assistive Devices Assistive Device None Orthotic/Prosthetic Devices or Brace: No Gait Deviations General Gait Pattern Antalgic,Flexed Trunk Factors Limiting Gait Function Factors Limiting Gait Function Decreased Strength,Limited Range of Motion,Pain,Poor Balance Stair Climbing Assessment Evaluation Level of Assist On Stairs Standby Assistance Devices Stair Climbing Assistive Devices None Technique/Endurance Stair Climbing Direction Ascend and Descend Stair Climbing Technique Step to Step Number of Steps Climbed 1 Query Text: Stair Climbing Set # Repetitions (reps) 1 PT-Balance Assessment Sitting Balance and Reactions Static Sitting Balance Ability Normal Dynamic Sitting Balance Ability Normal Standing Balance and Reactions Static Standing Balance Ability Good Dynamic Standing Balance Ability Good Device Used without AD M5 PT-IP Objective Assessments Start: 11/18/23 13:22 Freq: NEEDED Status: Active Protocol: Document 11/18/23 11:45 AB (Rec: 11/18/23 13:38 AB [id number]) Orientation Orientation/Cognition Level of Alertness Alert Orientation Name,Age,Place,Situation Language Function Ability No Deficits Noted Safety Awareness Understands Safety Issues Memory Description No Deficits Noted Gross Range of Motion Lower Extremity ROM Assessment Within Functional Limits Strength Lower Extremity Strength Assessment Within Functional Limits Muscle Tone Muscle Tone WNL Yes M6 PT-IP Treatment Start: 11/18/23 13:22 Freq: NEEDED Status: Active Protocol: Document 11/18/23 11:45 AB (Rec: 11/18/23 13:38 AB [id number]) Physical Therapy Treatment Education Education Provided Safety Other Treatments Other Treatment Performed traps/scalene stretching, scap retraction; postural alignment. M7 PT-IP Assessment and Plan Start: 11/18/23 13:22 Freq: NEEDED Status: Active Protocol: Document 11/18/23 11:45 AB (Rec: 11/18/23 13:38 AB [id number]) PT Summary Assessment and Plan Potential Rehabilitation Potential Fair Status of Condition at Evaluation Stable Summary Impairments Pain,ROM,Strength,Balance,Bed Mobility,Transfers,Gait, Activity Tolerance Assessment Summary pt is a 78 y/o M who presented to the ED due to AMS. pt in hospital to r/o CVA but also to r/o infection. pt is at PLOF and can be independent in room with mobility without AD . No further PT needs at this time. pt will benefit from outpt PT to address cervical/ shoulder issues. Frequency of Treatment Frequency Of Treatment Discharge Recommendations To Nursing Amount of Assist Needed Independent Discharge Recommendations Transportation Needs at Discharge Private Vehicle
[2023-11-18] MEDS: OXYCODONE IR 10 MG TABLET PO ×3 (12:12→17:51)
[2023-11-18] MEDS: cefTRIAXone 2,000 MG in SODIUM CHLORIDE 0.9% 100 ML 200 MG IV (12:18)
[2023-11-18 13:32] VITALS: BP 108/49; PULSE 65; RESP 18; TEMP 36.6; O2SAT 97
--- NOTE | 2023-11-18 14:36 | CM.DANOTE ---
Initial DCP Assessment Note Pt is a 78 yo male, resident of [facility], arrives with code stroke, sx resolved quickly. Admitted for stroke r/o, work up has been negative this far. Patient discussed with provider this morning who anticipates no needs from this CM team. PCP: Giancarol Sarah Payer: Wilian CARDONA MCR Reviewed chart, met w/patient to introduce self and role. Patient lives w/spouse, indp in all aspects. Patient denies needs from this CM team, states appreciation for the visit. No barriers identified at this time to patient's safe discharge home w/family to assist; close outpatient f/u recommended. CM team will plan to follow closely in case any DC needs or concerns arise. KAYLEEN Sadler Discharge Planning/Care Management CM Discharge Assessment Start: 11/18/23 14:12 Freq: Status: Active Protocol: Document 11/18/23 14:12 SIM (Rec: 11/18/23 14:36 SIM [id number]) Discharge Planning Assessment Assigned Label Printer KAYLEEN Rubalcava DPOA/Assigned Designee Name Sangeeta Munsonlaurinaty Contact Information [phone] Advance Directives? No History Provided By Patient,Medical Record Prior Living Arrangements House Household Members spouse Type of transporation used prior to Drives own vehicle admit Independent with ADL's Yes Is patient alert and oriented? Yes Patient/Family Preference OP PT Therapy Barriers to Discharge No Discharge Plan Home Transportation Arrangement Family Referrals Initiated None needed
--- NOTE | 2023-11-18 15:09 | PC.NURSE ---
Recieved phone call from the lab this morning at 1050 with critical result. Pt had two complete blood cultures taken while in the ED. Lab informed this RN that both aerobic blood cultures are growing strep bacteria. This RN called Dr. Davey to inform her of the positive blood cultures and had to leave a message with the answering service. This RN spoke to Dr. Davey at 1125 this morning and received the verbal telephone order to give the pt 2 grams of ceftriaxone, this RN read back the orders to confirm accuracy.
[2023-11-18] MEDS: HYDROMORPHONE 0.5 MG INJ IV ×2 (15:31→18:20)
[2023-11-18] MEDS: ACETAMINOPHEN 325 MG TABLET 650 MG PO (17:49)
[2023-11-18] MEDS: OXYCODONE IR 5 MG TABLET PO (18:51)
[2023-11-18 20:00] VITALS: BP 128/61; PULSE 88; RESP 16; TEMP 35.8; O2SAT 96
[2023-11-18] MEDS: ATORVASTATIN 20 MG TABLET PO (20:28)
[2023-11-19 05:44] VITALS: BP 137/61; PULSE 60; RESP 16; TEMP 36.2; O2SAT 97
[2023-11-19 05:52] LABS: Add Manual Diff / Slide Review NO; Basophils Absolute Auto 0 /uL (0-100); Basophils Percent Auto 0.5 % (0-2); Eosinophils Absolute Auto 100 /uL (0-450); Eosinophils Percent Auto 1.8 % (2-4); Hematocrit 34.5 % (41-53); Hemoglobin 11.7 g/dL (13.5-17.5); Lymphocytes Absolute Auto 1200 /uL (1100-4500); Mean Corpuscular HGB Conc 33.9 % (30-36); Mean Corpuscular Hemoglobin 31.1 PG (26-34); Mean Corpuscular Volume 91.7 fL (80-100); Monocytes Absolute Auto 800 /uL (0-900); Monocytes Percent Auto 11.3 % (3-14); Neutrophils Absolute Auto 4800 /uL (1500-7000); Neutrophils Percent Auto 69.4 % (50-75); Platelet Count 258 X10^3/uL (150-400); Red Blood Cell Count 3.76 X10^6/uL (4.5-5.9); Red Cell Distribution Width 13.1 % (11.6-14.8); White Blood Cell Count 6.9 X10^3/uL (4.5-11.0)
[2023-11-19 07:00] VITALS: O2SAT 95
[2023-11-19 08:00] VITALS: BP 131/56; PULSE 66; RESP 18; TEMP 36.4; O2SAT 95
[2023-11-19] MEDS: ENOXAPARIN 40 MG/0.4 ML SYRINGE SUBCUT (08:38)
[2023-11-19] MEDS: ASPIRIN EC 81 MG TABLET PO (08:38)
--- NOTE | 2023-11-19 09:04 | PM.DS.1 ---
History of Present Illness History of Present Illness Date Patient Seen: 11/19/23 Chief complaint: Code Stroke, LKW 0830 Narrative: 8-year-old male evaluated in the emergency department because of altered mental status and some degree of aphasia. His spouse apparently found him sitting in his chair when she awoke this morning with some difficulty speaking and seem to be confused disoriented etcetera. It was thought that he might be having some sort of acute neurologic event he was transported to the ER for evaluation. Patient had been complaining of severe neck and right shoulder discomfort since the end of October. He had been prescribed some medication via the walk-in clinic for this but apparently has not been taking it. Patient does have a known history of being resistant to taking any chronic medications. Patient himself really does not have any recall of events of this morning. His first event or recall of this morning is being in the ER. He seems to be intact from a neurologic standpoint to me although maybe a bit slow in answering questions In the ER he was found to be minimally febrile with a temperature 99.9?, tachycardic to 120 rosa, minimally hypertensive in the 160s over 70s with a normal oxygen saturation Lab work shows elevated WBC at 11,300 with a left shift. Chemistries unremarkable. Urine unremarkable. Head CT unremarkable CT angiogram of the head and neck unremarkable Chest x-ray pending. EKG shows sinus tach Patient has MRI scheduled in his admitted for further evaluation Patient with long history of cardiac issues including aortic valve replacement with a bovine aortic valve in 2012 also requiring replacement of his ascending aorta with a tube graft and coronary artery bypass graft at the same time. He subsequently has discontinued all of his usual medications (he did that within a year of his surgery) in his remained off medications and to the best of my knowledge has not had cardiac care for the last decade. No echocardiogram are available in the [facility] record Discharge Providers Provider Date of admission: 11/17/23 12:23 Discharge Date: 11/19/23 Primary care physician: Giancarlo Sarah MD Consults: 11/17/23 16:58 Consult to Discharge Planning Routine Comment: Consult to Occupational Therapy Evaluate & Treat Comment: Physician Instructions: Evaluate and treat Consult to Physical Therapy Evaluate & Treat Comment: Physician Instructions: Evaluate and Treat Consult to Speech Therapy Evaluate & Treat Comment: Physician Instructions: Evaluate and treat Discharge provider: Gretta Davey MD Summary Hospital Course Discharge Diagnosis: Altered mental status with aphasia HTN Bacteremia Hospital Course: The pt presented with altered mental status with aphasia. These symptoms primarily resolved while he was in the ED. CVA work-up was negative with normal head CT/CTA, MRI, and Echo. The pt was noted to have a slightly elevated temp to 99.9F in the ED and minimally elevated WBC count at admission. He received IV Ceftriaxone. His WBC count trended down, and the pt never had any additional elevation of his temperature while in the hospital. His blood cultures did return positive in 2/2 for Streptococcus. Unfortunately, speciation and sensitivities were not reported 24hrs after the initial positive result as they typically would be. With the patient feeling well without any concerns, and strongly desiring discharge, he was discharged on PO Ampicillin. We will f/u the blood cultures as an outpatient. Status at Discharge Cognitive/behavioral status at discharge: oriented Functional status at discharge: independent ambulation Overall status at discharge: patient is back to baseline Exam Vital Signs (past 8 hours): - 11/19/23 05:44 11/19/23 08:00 Temperature 97.2 F L 97.6 F Pulse Rate 60 66 Respiratory Rate 16 18 Blood Pressure 137/61 131/56 L Pulse Oximetry 97 95 Oxygen Flow Rate 0 0 Oxygen Delivery Method Room Air Oxygen Flow Rate 0 Narrative Exam Narrative: Gen: NAD, sitting comfortably in bed, appears well CV: RRR, no murmurs Resp: clear to auscultation bilaterally Abd: soft, nontender, nondistended Ext: no edema Objective Labs 11/19/23 05:35 11/17/23 10:30 Labs: Laboratory Results - last 24 hr 11/17/23 11/19/23 12:00 05:35 WBC 6.9 RBC 3.76 L Hgb 11.7 L Hct 34.5 L MCV 91.7 MCH 31.1 MCHC 33.9 RDW 13.1 Plt Count 258 Neut % (Auto) 69.4 Lymph % (Auto) 17.0 L [place] % (Auto) 11.3 Eos % (Auto) 1.8 L Baso % (Auto) 0.5 Neut # (Auto) 4800 Lymph # (Auto) 1200 [place] # (Auto) 800 Eos # (Auto) 100 Baso # (Auto) 0 A.calcoaceticus-baumannii cmplx PCR Not detected Bacteroides fragilis Not detected Andie albicans (PCR) Not detected Nadie auris (PCR) Not detected C. glabrata (PCR) Not detected C. krusei (PCR) Not detected C. parapsilosis (PCR) Not detected C. tropicalis (PCR) Not detected C. neoform/gattii (PCR) Not detected Enterobacterales (PCR) Not detected E. cloacae complex PCR Not detected Enterococc faecalis PCR Not detected Enterococc faecium PCR Not detected E. coli (PCR) Not detected H. influenzae (PCR) Not detected Klebsiella aerogenes (PCR) Not detected Klebsiella oxytoca PCR Not detected Klebsiella pneumoniae Not detected List. monocytogenes PCR Not detected N. meningitidis (PCR) Not detected Proteus species (PCR) Not detected Salmonella spp. (PCR) Not detected Serratia marcescens PCR Not detected Staphylococcus sp PCR Not detected Staph aureus (PCR) Not detected mecA/C & MREJ Resist Gene Not applicable mecA/C-Methicil Resis Gene Not applicable mcr-1 Colistin Res Gene PCR Not applicable Staph epidermidis (PCR) Not detected Staph lugdunensis PCR Not detected S. maltophilia (PCR) Not detected Streptococcus sp PCR Detected Group A Strep (PCR) Not detected Strep agalactiae (PCR) Not detected Strep pneumoniae (PCR) Not detected P. aeruginosa (PCR) Not detected Avinash/B-Vanco Res Genes Not applicable blaIMP Car res Gene PCR Not applicable KPC-Carbap Res Gene PCR Not applicable blaNDM Car Res Gene PCR Not applicable OXA-48 Carbapenem Resis Gene (PCR) Not applicable blaVIM Car Res Gene PCR Not applicable CTX-M Gene Resistance (PCR) Not applicable PENDING SALE TO [facility] Medical History Bilateral inguinal hernia Vision disorder Stroke (~2012) Migraines Compression fracture (~1964) Measles Chicken pox Tinnitus (~2017) Hearing loss (~2017) Cataracts, bilateral (~2018) Hypertension (~2012) Aortic stenosis (~2012) Skin cancer (~2016) Coronary artery disease (~2012) Pure hypercholesterolemia (05/26/16) Erectile dysfunction (05/26/16) Benign prostatic hyperplasia with lower urinary tract symptoms (05/26/16) Multiple actinic keratoses (05/26/16) Surgical History Anesthesia S/P ascending aortic replacement (~03/2013) S/P aortic valve replacement (~03/2013) S/P CABG (coronary artery bypass graft) (~03/2013) Family History Father History of heart disease Mother Cancer Sister Kidney failure Grandfather Cancer Grandmother Cancer Social History marital status: household members: spouse lives independently: Yes occupational status: employed Smoking Status: Never smoker alcohol intake: current substance use type: does not use Discharge Plan Discharge Plan Patient Disposition: Home Discharge orders & Medications Prescriptions: New atorvastatin 20 mg Tablet 20 mg PO BEDTIME Qty: 90 0RF aspirin 81 mg Tablet,Delayed Release (Dr/Ec) 81 mg PO DAILY Qty: 90 0RF amoxicillin 500 mg capsule 1,000 mg PO Q12H Qty: 14 0RF Continued ibuprofen 200 mg tablet 400 mg PO Q6H Qty: 60 0RF Follow up/Referrals: Giancarlo Sarah MD [Primary Care Provider] - 1 Week Diet/Activity/Treatments Diet: Diet as Tolerated and Regular Visit Report/Discharge Packet Instructions: Amoxicillin Stand Alone Forms: Patient Portal/API, Stroke Signs & Symptoms Discharge Data Primary Care Provider: Giancarlo Sarah Discharges patient from system. Discharge Date/Time: 11/19/23 14:05
[2023-11-19 12:00] VITALS: BP 117/48; PULSE 62; RESP 16; TEMP 36.4; O2SAT 95
--- NOTE | 2023-11-19 13:25 | CM.DPC ---
DCP Discharge Home SW spoke to MD rounding this weekend and anticipate patient to discharge home today with family and no identified barriers to discharge and no needs anticipated. Plan: SW to follow for plan of likely patient discharge home today if remains medically stable and any further identified discharge planning needs. KAYLEEN Mccall
== END 2023-11-19 14:05 | disposition home or self-care (01) | DRG 92 ==
LOC: ED 11:55 → AC 12:25
PROVIDERS: Family Medicine; Admitting Provider Internal Medicine; Emergency Provider Emergency Medicine; PCP Internal Medicine; Referring Provider Emergency Medicine; Visit Provider Internal Medicine
DX: R47.01 Aphasia (principal); R78.81 Bacteremia; R41.82 Altered mental status, unspecified; B95.5 Unspecified streptococcus as the cause of diseases classified elsewhere; D72.829 Elevated white blood cell count, unspecified; I10 Essential (primary) hypertension; R50.9 Fever, unspecified; E78.00 Pure hypercholesterolemia, unspecified; Z82.49 Family history of ischemic heart disease and other diseases of the circulatory system; I25.10 Atherosclerotic heart disease of native coronary artery without angina pectoris; Z95.1 Presence of aortocoronary bypass graft; Z95.3 Presence of xenogenic heart valve; Z95.828 Presence of other vascular implants and grafts; Z86.73 Personal history of transient ischemic attack (TIA), and cerebral infarction without residual deficits
CPT/HCPCS: 0241U; 36415; 70450; 70496; 70498; 70551; 71045; 80053; 80305; 80320; 81001; 81003; 82550; 82962; 84484; 85025; 85610; 85730; 87040; 87077; 87154; 87186; 87205; 93005; 93010; 93306; 96365; 96366; 96367; 96375; 97110; 97161; 99223; 99232; 99238; 99285; J0136; J0696; J1170; J1650; J2060; Q9967

== ENCOUNTER 2023-12-20 18:52 | Observation (INO) | payer MEDICARE, SELFPAY ==
[2023-11-17 17:05] VITALS: BMI 20.9
[2023-12-20] VITALS (11 sets, daily range): BP systolic 152–191; BP diastolic 66–84; PULSE 68–80; RESP 18; TEMP 36.6; O2SAT 95–100; BMI 23.6
[2023-12-20 19:16] LABS: Add Manual Diff / Slide Review NO; Basophils Absolute Auto 0 /uL (0-100); Basophils Percent Auto 0.4 % (0-2); Eosinophils Absolute Auto 100 /uL (0-450); Eosinophils Percent Auto 1.5 % (2-4); Hematocrit 37.8 % (41-53); Hemoglobin 12.7 g/dL (13.5-17.5); Lymphocytes Absolute Auto 1700 /uL (1100-4500); Lymphocytes Percent Auto 19.6 % (25-40); Mean Corpuscular HGB Conc 33.7 % (30-36); Mean Corpuscular Hemoglobin 31.3 PG (26-34); Monocytes Absolute Auto 900 /uL (0-900); Monocytes Percent Auto 10.9 % (3-14); Neutrophils Absolute Auto 5700 /uL (1500-7000); Neutrophils Percent Auto 67.6 % (50-75); Platelet Count 263 X10^3/uL (150-400); Red Blood Cell Count 4.07 X10^6/uL (4.5-5.9); Red Cell Distribution Width 14.1 % (11.6-14.8); White Blood Cell Count 8.5 X10^3/uL (4.5-11.0)
[2023-12-20 19:28] LABS: Alanine Aminotransferase 19 IU/L (<50); Albumin 4.4 g/dL (3.5-5.0); Albumin Globulin Ratio 1.4 (1.0-2.8); Alkaline Phosphatase 73 U/L (38-126); Aspartate Aminotransferase 30 IU/L (17-59); BUN Creatinine Ratio 23.5 (6-22); Bilirubin Total 0.5 mg/dL (0.2-1.3); Blood Urea Nitrogen 23 mg/dL (9-20); Calcium 9.7 mg/dL (8.4-10.2); Carbon Dioxide 28 mmol/L (22-32); Chloride 107 mmol/L (98-107); Estimated Glomerular Filt Rate > 60 mL/min (>60); Globulin 3.2 g/dL (1.7-4.1); Glucose 100 mg/dL (80-110); HEMOLYSIS < 15 (0-50); Lipase 96 U/L (23-300); Potassium 4.3 mmol/L (3.4-5.1); Sodium 139 mmol/L (137-145); Total Protein 7.6 g/dL (6.3-8.2)
--- NOTE | 2023-12-20 19:41 | ED_ITS ---
HPI - General Adult General Chief complaint: Abdominal Pain Stated complaint: stomach pain Time Seen by Provider: 12/20/23 19:16 Source: patient Mode of arrival: Ambulatory History of Present Illness HPI narrative: 78-year-old gentleman with extensive cardiac disease, aortic valve replacement, ascending aorta grafting, admitted to the hospital November 16 with altered mental status with concern for stroke however studies including MRI and echocardiogram did not show acute findings. He had positive blood cultures for Streptococcus and was treated with antibiotics at the time. He presents today complaining of abdominal pain coming in waves that started after eating popcorn at about 630 this evening. He describes the pain as acute, unlike anything he is ever experienced. Starts periumbilical and includes the entire lower abdomen. He is still has his appendix and gallbladder. He has never had an episode of diverticulitis. He has been in his usual state of good health up until this event at 6:30 a.m. this evening. Related Data Previous Rx's Medication Instructions Recorded ibuprofen 200 mg tablet 400 mg (2 x 200 mg) PO Q6H #60 tabs 02/01/23 aspirin 81 mg tablet,delayed 81 mg PO DAILY #90 tabs 11/19/23 release atorvastatin 20 mg tablet 20 mg PO BEDTIME #90 tabs 11/19/23 amoxicillin 500 mg capsule 1,000 mg (2 x 500 mg) PO Q12H #28 11/20/23 caps Allergies Allergy/AdvReac Type Severity Reaction Status Date / Time No Known Drug Allergies Allergy Verified 11/23/23 10:28 Review of Systems Review of Systems Narrative: Pertinent positive and negative findings as per HPI Patient History Medical History Bilateral inguinal hernia Vision disorder Stroke (~2012) Migraines Compression fracture (~1964) Measles Chicken pox Tinnitus (~2017) Hearing loss (~2017) Cataracts, bilateral (~2018) Hypertension (~2012) Aortic stenosis (~2012) Skin cancer (~2016) Coronary artery disease (~2012) Pure hypercholesterolemia (05/26/16) Erectile dysfunction (05/26/16) Benign prostatic hyperplasia with lower urinary tract symptoms (05/26/16) Multiple actinic keratoses (05/26/16) Surgical History Anesthesia S/P ascending aortic replacement (~03/2013) S/P aortic valve replacement (~03/2013) S/P CABG (coronary artery bypass graft) (~03/2013) Family History Father History of heart disease Mother Cancer Sister Kidney failure Grandfather Cancer Grandmother Cancer Social History marital status: household members: spouse lives independently: Yes occupational status: employed Smoking Status: Never smoker alcohol intake: current substance use type: does not use Smoking Status: Never smoker alcohol intake frequency: a few times a week Substance Use Type: does not use Exam Initial Vital Signs Initial Vital Signs: Vital Signs Temperature 98 F 12/20/23 19:00 Pulse Rate 74 12/20/23 19:00 Respiratory Rate 18 12/20/23 19:00 Blood Pressure 191/78 H 12/20/23 19:00 Pulse Oximetry 99 12/20/23 19:00 Oxygen Delivery Method Room Air 12/20/23 19:00 General: Healthy appearing, in mild pain but not toxic-appearing. Able to cooperate fully with exam. HEENT: Moist mucous membranes, normal sclera with reactive pupils, Respiratory: Lungs are clear to auscultation, no wheezing no rales no rhonchi. Full and symmetrical air movement Cardiac: 3/6 murmur, midline sternotomy scar. Abdomen: Soft, minimally tender periumbilical and into the lower abdomen. There is no rebound or guarding. He does not have a palpable pulse or bruit in his abdomen. Full and symmetrical inguinal pulses appreciated. Skin: Warm and dry, no rashes Neurologic: Grossly neurologically intact with no obvious asymmetries or abnormalities Extremities: No trauma, well perfused Psych: Cooperative, appropriate insight and affect Course Orders Ordered: ED Orders 12/20/23 19:04 Complete Blood Count AUTO DIFF Stat Comprehensive Metabolic Panel Stat Lipase Stat EKG-12 Lead Stat 12/20/23 20:59 CT abdomen pelvis w con Stat Ondansetron HCl (Ondansetron 4 Mg/2 Ml Inj) 4 mg IV NOW PRN PRN Reason: Nausea And Vomiting Ondansetron HCl (Ondansetron 4 Mg Odt) 4 mg PO NOW PRN PRN Reason: Nausea And Vomiting Vital Signs Vital signs: Vital Signs - 8 hr 12/20/23 19:00 12/20/23 19:00 12/20/23 19:00 Temperature 98 F Pulse Rate 74 79 Respiratory Rate 18 Blood Pressure 191/78 H 187/84 H Pulse Oximetry 99 98 Oxygen Delivery Method Room Air 12/20/23 19:30 12/20/23 19:31 12/20/23 19:31 Temperature Pulse Rate 74 68 Respiratory Rate Blood Pressure 171/72 H Pulse Oximetry 99 100 Oxygen Delivery Method 12/20/23 20:00 12/20/23 20:00 12/20/23 20:30 Temperature Pulse Rate 71 70 Respiratory Rate Blood Pressure 175/77 H Pulse Oximetry 99 99 Oxygen Delivery Method 12/20/23 20:31 12/20/23 20:31 12/20/23 21:00 Temperature Pulse Rate 71 72 Respiratory Rate Blood Pressure 169/68 H Pulse Oximetry 99 99 Oxygen Delivery Method 12/20/23 21:00 12/20/23 21:26 12/20/23 21:26 Temperature Pulse Rate 80 Respiratory Rate Blood Pressure 152/66 H 153/81 H Pulse Oximetry 97 Oxygen Delivery Method 12/20/23 21:30 12/20/23 22:00 12/20/23 22:30 Temperature Pulse Rate 74 74 77 Respiratory Rate Blood Pressure Pulse Oximetry 99 96 95 Oxygen Delivery Method Medical Decision Making Lab Data 12/20/23 19:04 12/20/23 19:04 Labs: Lab Results 12/20/23 Range/Units 19:04 WBC 8.5 (4.5-11.0) X10^3/uL RBC 4.07 L (4.5-5.9) X10^6/uL Hgb 12.7 L (13.5-17.5) g/dL Hct 37.8 L (41-53) % MCV 93.0 (80-100) fL MCH 31.3 (26-34) PG MCHC 33.7 (30-36) % RDW 14.1 (11.6-14.8) % Plt Count 263 (150-400) X10^3/uL Neut % (Auto) 67.6 (50-75) % Lymph % (Auto) 19.6 L (25-40) % [place] % (Auto) 10.9 (3-14) % Eos % (Auto) 1.5 L (2-4) % Baso % (Auto) 0.4 (0-2) % Neut # (Auto) 5700 (9663-8159) /uL Lymph # (Auto) 1700 (3480-2678) /uL [place] # (Auto) 900 (0-900) /uL Eos # (Auto) 100 (0-450) /uL Baso # (Auto) 0 (0-100) /uL Sodium 139 (137-145) mmol/L Potassium 4.3 (3.4-5.1) mmol/L Chloride 107 (98-107) mmol/L Carbon Dioxide 28 (22-32) mmol/L BUN 23 H (9-20) mg/dL Creatinine 0.98 (0.66-1.25) mg/dL Estimated GFR > 60 (>60) mL/min BUN/Creatinine Ratio 23.5 H (6-22) Glucose 100 (80-110) mg/dL Calcium 9.7 (8.4-10.2) mg/dL Total Bilirubin 0.5 (0.2-1.3) mg/dL AST 30 (17-59) IU/L ALT 19 (<50) IU/L Alkaline Phosphatase 73 (38-126) U/L Total Protein 7.6 (6.3-8.2) g/dL Albumin 4.4 (3.5-5.0) g/dL Globulin 3.2 (1.7-4.1) g/dL Albumin/Globulin Ratio 1.4 (1.0-2.8) Lipase 96 (23-300) U/L Urine Dip Bedside Urine Glucose Negative Bedside Urine Bilirubin - Negative Bedside Urine Ketone - Negative Urine Specific [place] 1.010 Bedside Urine Occult Blood - Negative Bedside Urine pH 7.0 Bedside Urine Protein - Negative Bedside Urine Urobilinogen - Negative Bedside Urine Nitrite - Negative Bedside Urine Leukocytes - Negative Esterase Point of care testing: Urine Dip Bedside Urine Glucose Negative Bedside Urine Bilirubin - Negative Bedside Urine Ketone - Negative Urine Specific [place] 1.010 Bedside Urine Occult Blood - Negative Bedside Urine pH 7.0 Bedside Urine Protein - Negative Bedside Urine Urobilinogen - Negative Bedside Urine Nitrite - Negative Bedside Urine Leukocytes - Negative Esterase Imaging Data CT scan - abdomen/pelvis: Radiologist's Impression: PROCEDURE: CT ABDOMEN PELVIS W CON INDICATIONS: acute abdominal pain TECHNIQUE: After the administration of intravenous contrast, axial sections acquired from the lung bases to the pubic symphysis. Coronal and sagittal reformats were performed. For radiation dose reduction, the following was used: automated exposure control, adjustment of mA and/or kV according to patient size. COMPARISON: [facility], CR, XR CHEST 1V, 11/17/2023, 12:14. FINDINGS: Image quality: Diagnostic. Lower Chest: Aortic valve replacement. Sternotomy wires. ABDOMEN: Liver: No solid mass. A few small cysts. Gallbladder: No radiopaque gallstones or wall thickening. Biliary ducts: No biliary dilation. Pancreas: No ductal dilation. Spleen: Size is within normal limits. Adrenal Glands: No adrenal nodules. Kidneys and Ureters: No hydronephrosis. No solid mass. No complex renal cystic lesion which requires follow up. Stomach and Bowel: Colon is within normal limits. Small bowel is dilated. Transition point in the right lower quadrant, (10/21). Air-fluid levels. Mesenteric edema. Small volume of free fluid in the left abdomen. Stomach is not distended. Normal appendix. Peritoneum: No pneumoperitoneum. Fluid adjacent to the liver and spleen. Fluid in the pericolic gutters. Ventral Wall: Tiny fat containing umbilical hernia. Abdominal Nodes: No retroperitoneal or mesenteric adenopathy by size criteria. Vessels: Aorta and inferior vena cava are normal in size. PELVIS: Pelvic Organs: Prominent prostate gland. Median lobe hypertrophy. Trace fluid at the right pericolic gutter. Bladder: Bladder diverticuli. Trabeculated appearance. No stone. Pelvic Nodes: No enlarged lymph nodes. Miscellaneous: No inguinal hernias are seen. Suspect prior inguinal hernia repairs. Bones: No aggressive osseous abnormality. Minimal height loss at L1. Multilevel DDD. Multilevel Schmorl's nodes. IMPRESSION: 1. Small bowel obstruction. Transition point in the right lower quadrant. 2. Prominent prostate gland. Bladder diverticuli. Findings concerning for bladder outlet obstruction. Comment: Findings were discussed with Marichuy Asher at time of dictation. Dictated by: Prashanth Ashford M.D. on 12/20/2023 at 22:19 MDM Narrative Medical decision making narrative: CC: 78-year-old gentleman with the acute onset of abdominal pain 6:30 p.m., periumbilical radiating into lower quadrants Complicating co-morbidities: Prior a aortic valve repair and thoracic aortic grafting, recent admission with positive blood cultures for strep presenting symptom was weakness, still has gallbladder and appendix in place Data collected from: patient Medical records reviewed: Hospital admission from November 16 is reviewed, initial concern for stroke but felt to be infectious at time of discharge January of 2023 he had bilateral inguinal hernia repair laparoscopically Differential considered: Diverticulitis, appendicitis, urinary tract infection, significant urinary retention, bowel obstruction, other infection, AAA Exam documented above, pertinent findings include: Moderate tenderness in the periumbilical and lower abdomen without rebound or guarding, no obvious expanded aorta or pulsatile masses Lab Test results independently reviewed as above. Pertinent findings: CBC is unremarkable, chronic stable anemia Chemistries are unremarkable with normal liver enzymes Lipase is normal Imaging studies independently reviewed: CT scan discussed in real-time with Radiology. Bowel obstruction with transition point in the right lower quadrant with surrounding mesenteric edema Treatments: Fluids, Zofran, patient has declined pain medications Discussion: 78-year-old gentleman with acute onset abdominal pain with small- bowel obstruction with what looks like a transition point in the right lower quadrant. He has not had abdominal surgery as far as he recalls. No sign of infection or alternate explanation for his abdominal pain. We will talk Dr. Arriaga, who is covering for Dr. Sarah this patient's primary care physician, Regarding admission and conservative management for his small-bowel obstruction. At this point I do not see significant indication for NG tube but if he begins to have significant nausea vomiting or increasing pain can certainly consider that. Reviewed with him need for hospitalization and conservative management for a small-bowel obstruction. He expresses understanding Transition orders are written Discharge Plan Departure Patient Disposition: Admitted as Observation Clinical Impression: Small bowel obstruction
--- NOTE | 2023-12-20 20:59 | DI.CT.S_ITS ---
PROCEDURE: CT ABDOMEN PELVIS W CON INDICATIONS: acute abdominal pain TECHNIQUE: After the administration of intravenous contrast, axial sections acquired from the lung bases to the pubic symphysis. Coronal and sagittal reformats were performed. For radiation dose reduction, the following was used: automated exposure control, adjustment of mA and/or kV according to patient size. COMPARISON: [facility], CR, XR CHEST 1V, 11/17/2023, 12:14. FINDINGS: Image quality: Diagnostic. Lower Chest: Aortic valve replacement. Sternotomy wires. ABDOMEN: Liver: No solid mass. A few small cysts. Gallbladder: No radiopaque gallstones or wall thickening. Biliary ducts: No biliary dilation. Pancreas: No ductal dilation. Spleen: Size is within normal limits. Adrenal Glands: No adrenal nodules. Kidneys and Ureters: No hydronephrosis. No solid mass. No complex renal cystic lesion which requires follow up. Stomach and Bowel: Colon is within normal limits. Small bowel is dilated. Transition point in the right lower quadrant, (10/21). Air-fluid levels. Mesenteric edema. Small volume of free fluid in the left abdomen. Stomach is not distended. Normal appendix. Peritoneum: No pneumoperitoneum. Fluid adjacent to the liver and spleen. Fluid in the pericolic gutters. Ventral Wall: Tiny fat containing umbilical hernia. Abdominal Nodes: No retroperitoneal or mesenteric adenopathy by size criteria. Vessels: Aorta and inferior vena cava are normal in size. PELVIS: Pelvic Organs: Prominent prostate gland. Median lobe hypertrophy. Trace fluid at the right pericolic gutter. Bladder: Bladder diverticuli. Trabeculated appearance. No stone. Pelvic Nodes: No enlarged lymph nodes. Miscellaneous: No inguinal hernias are seen. Suspect prior inguinal hernia repairs. Bones: No aggressive osseous abnormality. Minimal height loss at L1. Multilevel DDD. Multilevel Schmorl's nodes. IMPRESSION: 1. Small bowel obstruction. Transition point in the right lower quadrant. 2. Prominent prostate gland. Bladder diverticuli. Findings concerning for bladder outlet obstruction. Comment: Findings were discussed with Marichuy Asher at time of dictation. Dictated by: Prashanth Ashford M.D. on 12/20/2023 at 22:19 Approved by: Prashanth Ashford M.D. on 12/20/2023 at 22:29
--- NOTE | 2023-12-20 23:57 | PC.NURSE ---
Report called to Zion STEINER in Acute Care
[2023-12-21 00:20] VITALS: BP 145/69; PULSE 83; RESP 18; TEMP 36.3; O2SAT 98
[2023-12-21] MEDS: SODIUM CHLORIDE 0.9% 1,000 ML 125 ML IV ×2 (00:55→09:35)
[2023-12-21 00:58] VITALS: BMI 23.6
[2023-12-21 06:44] VITALS: BP 137/64; PULSE 64; RESP 16; TEMP 36; O2SAT 98
--- NOTE | 2023-12-21 07:20 | PM.HP.1 ---
History of Present Illness History of Present Illness Date Patient Seen: 12/21/23 Time Patient Seen: 07:20 Chief complaint: stomach pain Narrative: 78-year-old male admitted via emergency department with abdominal pain subsequently proven to be bowel obstruction ER evaluation showed essentially normal blood work, but CT scan demonstrated a small-bowel obstruction with a right lower quadrant transition point No prior abdominal surgeries. Extensive cardiac history including coronary artery bypass grafting, aortic valve replacement, and replacement of his ascending aorta Recent admission for altered mental status with bacteremia with subsequent resolution and no recurrent symptoms [facility] Medical History Bilateral inguinal hernia Vision disorder Stroke (~2012) Migraines Compression fracture (~1964) Measles Chicken pox Tinnitus (~2017) Hearing loss (~2017) Cataracts, bilateral (~2018) Hypertension (~2012) Aortic stenosis (~2012) Skin cancer (~2016) Coronary artery disease (~2012) Pure hypercholesterolemia (05/26/16) Erectile dysfunction (05/26/16) Benign prostatic hyperplasia with lower urinary tract symptoms (05/26/16) Multiple actinic keratoses (05/26/16) Surgical History Anesthesia S/P ascending aortic replacement (~03/2013) S/P aortic valve replacement (~03/2013) S/P CABG (coronary artery bypass graft) (~03/2013) Family History Father History of heart disease Mother Cancer Sister Kidney failure Grandfather Cancer Grandmother Cancer Social History marital status: household members: spouse lives independently: Yes occupational status: employed Smoking Status: Never smoker alcohol intake: current substance use type: does not use Meds Home Medications and Allergies Home Medications Medication Instructions Recorded Confirmed Type ibuprofen 200 mg tablet 400 mg (2 x 200 mg) PO Q6H #60 tabs 02/01/23 12/21/23 Rx aspirin 81 mg tablet,delayed 81 mg PO DAILY #90 tabs 11/19/23 12/21/23 Rx release atorvastatin 20 mg tablet 20 mg PO BEDTIME #90 tabs 11/19/23 12/21/23 Rx Allergies Allergy/AdvReac Type Severity Reaction Status Date / Time No Known Drug Allergies Allergy Verified 11/23/23 10:28 Review of Systems Review of Systems ROS: Yes All systems reviewed with the patient and are negative except as otherwise documented Exam Vital Signs (past 8 hours): - 12/21/23 00:20 12/21/23 06:44 Temperature 97.4 F L 96.8 F L Pulse Rate 83 64 Respiratory Rate 18 16 Blood Pressure 145/69 H 137/64 Pulse Oximetry 98 98 Oxygen Flow Rate 0 0 Oxygen Delivery Method Room Air Oxygen Flow Rate 0 Narrative Exam Narrative: Non acutely ill-appearing male lying in hospital bed HEENT-unremarkable Lungs-clear Heart-regular rate and rhythm Abdomen-positive bowel tones throughout, soft nontender nondistended Extremities-no cyanosis clubbing or edema Objective Labs 12/20/23 19:04 12/20/23 19:04 Labs: Laboratory Results - last 24 hr 12/20/23 19:04 WBC 8.5 RBC 4.07 L Hgb 12.7 L Hct 37.8 L MCV 93.0 MCH 31.3 MCHC 33.7 RDW 14.1 Plt Count 263 Neut % (Auto) 67.6 Lymph % (Auto) 19.6 L [place] % (Auto) 10.9 Eos % (Auto) 1.5 L Baso % (Auto) 0.4 Neut # (Auto) 5700 Lymph # (Auto) 1700 [place] # (Auto) 900 Eos # (Auto) 100 Baso # (Auto) 0 Sodium 139 Potassium 4.3 Chloride 107 Carbon Dioxide 28 BUN 23 H Creatinine 0.98 Estimated GFR > 60 BUN/Creatinine Ratio 23.5 H Glucose 100 Calcium 9.7 Total Bilirubin 0.5 AST 30 ALT 19 Alkaline Phosphatase 73 Total Protein 7.6 Albumin 4.4 Globulin 3.2 Albumin/Globulin Ratio 1.4 Lipase 96 Assessment & Plan Assessment & Plan narrative: 1. Small-bowel obstruction-diagnose with appropriate symptoms and CT scan upon admission via the ED. However this morning he is pain-free he has normal bowel tones and I completely normal abdominal exam. Given the super quick nature of this turned around I am going to go ahead and get plain film imaging before I begin to re-feed him with liquids later this morning which seems likely 2. Cardiac-patient with extensive cardiac history as above but really quite stable recently. Will not be able to take usual medications while NPO. Resume when able to resume oral intake 3. VTE prophylaxis-Lovenox makes sense 4. Code status-patient appropriate for full code as per his request PROFEE Charge Codes Initial inpatient/observation care: [id number]
--- NOTE | 2023-12-21 08:03 | DI.RAD.S_ITS ---
PROCEDURE: XR ABDOMEN MIN 2V INDICATIONS: sbo TECHNIQUE: 2 views of the abdomen were acquired. COMPARISON: CT abdomen pelvis 12/20/2023. FINDINGS: Surgical changes and devices: Sternotomy wire and mediastinal surgical clips. Aortic valve replacement. Bowel: No pneumoperitoneum. The bowel gas pattern is nonobstructive. Soft tissues: No masses; visualized solid organ contours appear normal in size. No suspicious abdominal calcifications. Bones: No suspicious bony abnormalities. IMPRESSION: Non-obstructive radiographic bowel gas pattern. Approved by: Shanique Greene M.D.,Ph.D. on 12/21/2023 at 9:35
[2023-12-21] MEDS: ENOXAPARIN 40 MG/0.4 ML SYRINGE SUBCUT (08:13)
[2023-12-21 08:48] VITALS: BP 138/62; PULSE 70; RESP 16; TEMP 36.2; O2SAT 98
--- NOTE | 2023-12-21 14:18 | CM.DANOTE ---
Initial DCP Assessment Note Pt is a 78 yo male, resident of [place], arrives to the ED due to abdominal pain caused by a small bowel obstruction. Pt lives in a house with spouse, Sangeeta. Pt was recently admitted on 11/18/23 for altered mental status and aphasia, work up for code stroke. PCP: Giancarlo Sarah Payer: Wilian [facility] Reviewed chart and team rounds for pt's medical status and initial discharge needs. DCP met w/patient at bedside; introduced self and role. Pt confirmed living situation and prefers if son, Kalpesh, is his proxy/emergency contact. Pt denied any dc needs at this time and is waiting for results of xray earlier this morning to determine care plan. Plan: Pt to continue with trial of clear liquid diet and monitor toleration. CM team will plan to follow clinical course closely for assessment of need and coordination of discharge plan. SARAH Galdamez Discharge Planning/Care Management CM Discharge Assessment Start: 12/21/23 13:39 Freq: Status: Active Protocol: Document 12/21/23 13:39 MW (Rec: 12/21/23 14:18 MW [id number]) Discharge Planning Assessment Assigned Tester [employer] KAYLEEN Yoder DPELLE/Assigned Designee Name Juan R Posey Contact Information [phone] Advance Directives? No History Provided By Patient,Medical Record Has Patient been admitted in last 30 Yes days? Comment Pt was admitted on 11/18/23 for altered mental status. Prior Living Arrangements House Household Members spouse Type of transporation used prior to Drives own vehicle admit Independent with ADL's Yes Is patient alert and oriented? Yes Caregiver for Another No Barriers to Discharge No Discharge Plan Home Transportation Arrangement Family Referrals Initiated None needed Whiteboard Updated in Patient Room with Yes name and ext. # of Tester [employer] Comment [phone] Please Provide Date Initial DC 12/21/23 Assessment Was Performed Next Review Type Continued Stay Review
[2023-12-21 15:02] VITALS: BP 166/60; PULSE 72; RESP 16; TEMP 36.4; O2SAT 98
--- NOTE | 2023-12-22 07:26 | P.DS_ITS ---
History of Present Illness History of Present Illness Date Patient Seen: 12/21/23 Time Patient Seen: 17:00 Chief complaint: stomach pain Narrative: 78-year-old male admitted via emergency department with abdominal pain subsequently proven to be bowel obstruction ER evaluation showed essentially normal blood work, but CT scan demonstrated a small-bowel obstruction with a right lower quadrant transition point No prior abdominal surgeries. Extensive cardiac history including coronary artery bypass grafting, aortic valve replacement, and replacement of his ascending aorta Recent admission for altered mental status with bacteremia with subsequent resolution and no recurrent symptoms Discharge Providers Provider Date of admission: 12/20/23 23:10 Discharge Date: 12/21/23 Primary care physician: Giancarlo Sarah MD Discharge provider: Giancarlo Sarah MD Summary Hospital Course Discharge Diagnosis: 1. Small-bowel obstruction 2. Hyperlipidemia 3. Coronary artery disease, not active this hospitalization 4. BPH with LUTS Hospital Course: Patient was admitted to the hospital after presenting with abdominal pain and evidence of bowel obstruction on CT scan. Overnight first night of admission patient's symptoms resolved completely bowel tones were normal and patient was re fed beginning with liquids and then more complicated foods. Patient had no additional symptoms whatsoever. Plain film x-rays were performed prior to re feeding patient given the rapid nature of his improvement which demonstrated a fairly normal bowel gas pattern. Therefore overall with resolution of symptoms normal exam and ability to eat without increasing symptoms patient was felt to have resolved his bowel obstruction was discharged home in his stable condition Status at Discharge Cognitive/behavioral status at discharge: at baseline, oriented Functional status at discharge: independent ambulation Overall status at discharge: patient is back to baseline Time Spent with Patient Time spent: Less than 30 minutes Exam Vital Signs (past 8 hours): Oxygen Delivery Method Room Air Oxygen Flow Rate 0 Objective Labs 12/20/23 19:04 12/20/23 19:04 [facility] Medical History Bilateral inguinal hernia Vision disorder Stroke (~2012) Migraines Compression fracture (~1964) Measles Chicken pox Tinnitus (~2017) Hearing loss (~2017) Cataracts, bilateral (~2018) Hypertension (~2012) Aortic stenosis (~2012) Skin cancer (~2016) Coronary artery disease (~2012) Pure hypercholesterolemia (05/26/16) Erectile dysfunction (05/26/16) Benign prostatic hyperplasia with lower urinary tract symptoms (05/26/16) Multiple actinic keratoses (05/26/16) Surgical History Anesthesia S/P ascending aortic replacement (~03/2013) S/P aortic valve replacement (~03/2013) S/P CABG (coronary artery bypass graft) (~03/2013) Family History Father History of heart disease Mother Cancer Sister Kidney failure Grandfather Cancer Grandmother Cancer Social History marital status: household members: spouse lives independently: Yes occupational status: employed Smoking Status: Never smoker alcohol intake: current substance use type: does not use Discharge Plan Discharge Plan Patient Disposition: Home Discharge orders & Medications Prescriptions: Continued ibuprofen 200 mg tablet 400 mg PO Q6H Qty: 60 0RF atorvastatin 20 mg Tablet 20 mg PO BEDTIME Qty: 90 0RF aspirin 81 mg Tablet,Delayed Release (Dr/Ec) 81 mg PO DAILY Qty: 90 0RF Follow up/Referrals: Giancarlo Sarah MD [Primary Care Provider] - 2 Weeks Discharge Health Status Multidrug resistant organism: No MDRO Diet/Activity/Treatments Diet: Diet as Tolerated Visit Report/Discharge Packet Instructions: DI for Prescription Opioid Use Stand Alone Forms: Congestive Heart Failure, Patient Portal/API, Stroke Signs & Symptoms Discharge Data Primary Care Provider: Giancarlo Sarah Attending Provider: Giancarlo Sarah Admit Date/Time: 12/20/23 23:10
== END 2023-12-21 18:17 | disposition home or self-care (01) ==
LOC: ED 23:04 → AC 23:11
PROVIDERS: Admitting Provider Family Medicine; Emergency Provider Emergency Medicine; PCP Internal Medicine; Visit Provider Internal Medicine
DX: K56.609 Unspecified intestinal obstruction, unspecified as to partial versus complete obstruction (principal)
CPT/HCPCS: 36415; 74019; 74177; 80053; 81003; 83690; 85025; 96360; 96361; 96372; 99235; 99284; G0378; J1650; Q9967

== ENCOUNTER 2024-04-06 20:14 | Observation (INO) | payer MEDICARE, SELFPAY ==
[2024-04-06] VITALS (13 sets, daily range): BP systolic 161–201; BP diastolic 73–109; PULSE 56–80; RESP 10–43; TEMP 36.9; O2SAT 94–100; BMI 20.7
--- NOTE | 2024-04-06 20:30 | EKG_ITS ---
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
--- NOTE | 2024-04-06 20:30 | DI.CT.S_ITS ---
PROCEDURE: CT HEAD/BRAIN WO CON INDICATIONS: TIA TECHNIQUE: Noncontrast 4.5 mm thick angled axial sections acquired from the foramen magnum to the vertex, with coronal and sagittal reformats. For radiation dose reduction, the following was used: automated exposure control, adjustment of mA and/or kV according to patient size. COMPARISON: None. FINDINGS: Image quality: Diagnostic. CSF spaces: Basal cisterns are patent. No extra-axial fluid collections. Ventricles are normal in size and shape. Brain: No midline shift. No intracranial masses or hemorrhage. Lopez-white matter interface is normal. Skull and face: Calvarium and visualized facial bones are intact, without suspicious lesions. Sinuses: Visualized sinuses and mastoids are clear. IMPRESSION: Moderate atrophy and white matter chronic ischemic change. Old small right frontal white matter infarct and small right superior cerebellar cortical infarct Approved by: Vinny Lockett M.D. on 04/06/2024 at 22:02
--- NOTE | 2024-04-06 20:30 | DI.CT.S_ITS ---
PROCEDURE: CT ANGIO HEAD AND NECK INDICATIONS: TIA TECHNIQUE: After the administration of intravenous contrast, 1 mm thick sections acquired from the aortic arch through the [place] of [place]. MIP reformats of the arterial vasculature were utilized. For radiation dose reduction, the following was used: automated exposure control, adjustment of mA and/or kV according to patient size. COMPARISON: [facility], CT, CT ANGIO HEAD AND NECK, 11/17/2023, 10:08. FINDINGS: Cerebral CT Angiogram: Internal carotid arteries: Atherosclerotic vascular calcification the cavernous segments of both internal carotid arteries results in [id number] stenosis on the right. No aneurysm. Anterior cerebral arteries: Unremarkable. No significant stenosis. No occlusion. No aneurysm. Middle cerebral arteries: Unremarkable. No significant stenosis. No occlusion. No aneurysm. Posterior cerebral arteries: Unremarkable. No significant stenosis. No occlusion. No aneurysm. Basilar artery: Unremarkable. No significant stenosis. No occlusion. No aneurysm. Vertebral arteries: Diminutive left vertebral artery terminates in the posterior inferior cerebellar artery. Right vertebral artery dominance. Dural venous sinuses: Unremarkable given phase of enhancement. Other: Arterial phase brain parenchyma is unremarkable. Neck CT Angiogram: Internal carotid arteries: Unremarkable. No significant stenosis. No dissection or occlusion. Mild atherosclerotic plaque in the proximal ICA bilaterally. Common carotid arteries: Unremarkable. No significant stenosis. No dissection or occlusion. External carotid arteries: Unremarkable. No occlusion. Vertebral arteries: Left vertebral artery is diminutive patent. Right vertebral artery dominance. Other: None. Aortic Arch and Mediastinum: Partially visualized aortic arch unremarkable without evidence of aneurysm. Origins of the great vessels unremarkable. IMPRESSION: Unremarkable intracranial angiogram without large vessel occlusion, aneurysm or vascular malformation. Trace atherosclerotic calcification without proximal ICA stenosis in the neck. Any quantitative measurements of stenosis were performed using NASCET criteria. Approved by: Vinny Lockett M.D. on 04/06/2024 at 22:08
[2024-04-06 20:50] LABS: Add Manual Diff / Slide Review NO; Basophils Absolute Auto 0 /uL (0-100); Basophils Percent Auto 0.4 % (0-2); Eosinophils Absolute Auto 100 /uL (0-450); Eosinophils Percent Auto 1.6 % (2-4); Hematocrit 37.9 % (41-53); Hemoglobin 12.9 g/dL (13.5-17.5); Lymphocytes Absolute Auto 1700 /uL (1100-4500); Lymphocytes Percent Auto 27.6 % (25-40); Mean Corpuscular Hemoglobin 31.5 PG (26-34); Mean Corpuscular Volume 92.6 fL (80-100); Monocytes Absolute Auto 700 /uL (0-900); Neutrophils Absolute Auto 3600 /uL (1500-7000); Neutrophils Percent Auto 59.4 % (50-75); Platelet Count 205 X10^3/uL (150-400); Red Blood Cell Count 4.09 X10^6/uL (4.5-5.9); Red Cell Distribution Width 14.1 % (11.6-14.8)
[2024-04-06 20:58] LABS: INR 1.1 (0.9-1.3); Prothrombin Time 12.3 SECONDS (9.4-12.5)
[2024-04-06 21:01] LABS: PTT Partial Thromboplastin Tim 40 SECONDS (25.1-36.5)
[2024-04-06 21:03] LABS: Alanine Aminotransferase 23 IU/L (<50); Albumin 4.1 g/dL (3.5-5.0); Albumin Globulin Ratio 1.5 (1.0-2.8); Alkaline Phosphatase 60 U/L (38-126); Aspartate Aminotransferase 35 IU/L (17-59); BUN Creatinine Ratio 25.2 (6-22); Bilirubin Total 0.6 mg/dL (0.2-1.3); Blood Urea Nitrogen 32 mg/dL (9-20); Calcium 9.6 mg/dL (8.4-10.2); Carbon Dioxide 23 mmol/L (22-32); Chloride 106 mmol/L (98-107); Creatine Kinase 133 U/L (55-170); Estimated Glomerular Filt Rate 57 mL/min (>60); Ethanol (ETOH) < 10 mg/dL; Globulin 2.8 g/dL (1.7-4.1); Glucose 102 mg/dL (80-110); HEMOLYSIS < 15 (0-50); Lipase 87 U/L (23-300); Potassium 3.9 mmol/L (3.4-5.1); Sodium 138 mmol/L (137-145); Total Protein 6.9 g/dL (6.3-8.2)
[2024-04-06 21:14] LABS: Troponin I 0.033 ng/mL (0.01-0.034)
--- NOTE | 2024-04-06 23:37 | ED_ITS ---
HPI - Neuro Symptoms/Deficit General Chief Complaint: Neuro Symptoms/Deficit Stated Complaint: thinks he is having a stroke Time Seen by Provider: 04/06/24 20:29 Source: patient Mode of arrival: Ambulatory Limitations: no limitations History of Present Illness HPI Narrative: Patient is a 78-year-old male. Does have a history of a CVA. Not on anticoagulation. No reported history of high blood pressure who is here for evaluation of 2 separate episodes of what he thinks was a stroke. He states that yesterday and today he would very similar symptoms he. He states that for a period of time what she describes as approximately 1 hour or longer he was confused and was slurring his words. His is at bedside who agrees that what he was saying was not making any sense. It did not appear to have any balance issues. He denied chest pain or shortness of breath or vision changes. Yesterday the symptom completely resolved. Today the same symptoms happened once again and he now states that he was feeling almost back to normal except that he was having a headache. On Anticoagulants: No Related Data Allergies Allergy/AdvReac Type Severity Reaction Status Date / Time No Known Drug Allergies Allergy Verified 03/19/24 13:44 Review of Systems Review of Systems ROS Unobtainable: All systems reviewed & are unremarkable except as noted in HPI and below Hematologic/Lymphatic On Anticoagulants: No Patient History Medical History Small bowel obstruction Bilateral inguinal hernia Vision disorder Stroke (~2012) Migraines Compression fracture (~1964) Measles Chicken pox Tinnitus (~2017) Hearing loss (~2017) Cataracts, bilateral (~2019) Hypertension (~2012) Aortic stenosis (~2012) Skin cancer (~2016) Coronary artery disease (~2012) Pure hypercholesterolemia (05/26/16) Erectile dysfunction (05/26/16) Benign prostatic hyperplasia with lower urinary tract symptoms (05/26/16) Multiple actinic keratoses (05/26/16) Surgical History Anesthesia S/P ascending aortic replacement (~03/2013) S/P aortic valve replacement (~03/2013) S/P CABG (coronary artery bypass graft) (~03/2013) Family History Father History of heart disease Mother Cancer Sister Kidney failure Grandfather Cancer Grandmother Cancer Social History marital status: household members: spouse lives independently: Yes occupational status: employed Smoking Status: Never smoker alcohol intake: current substance use type: does not use Smoking Status: Never smoker alcohol intake frequency: holidays/special occasions only Substance Use Type: does not use Exam Initial Vital Signs Initial Vital Signs: Vital Signs Temperature 98.5 F 04/06/24 20:16 Pulse Rate 69 04/06/24 20:16 Respiratory Rate 18 04/06/24 20:16 Blood Pressure 172/86 H 04/06/24 20:16 Pulse Oximetry 98 04/06/24 20:16 Oxygen Delivery Method Room Air 04/06/24 20:16 Const General: cooperative, comfortable and No ill appearing HENMT Head: normal to inspection and normocephalic Resp Effort & Inspection: normal respiratory effort Auscultation: clear to auscultation bilaterally Cardio Rate: regular rate Rhythm: regular rhythm GI Inspection: normal to inspection and non-distended Skin General: no rashes or lesions noted Neuro General: patient alert, patient awake, patient oriented x3 and moves all extremities Cognition: normal cognition Speech: speech normal Motor: muscle tone normal throughout Sensory Exam: no sensory deficits noted Extrem General: capillary refill normal Scores ABCD2 Age >= 60 years: yes Initial BP. Either SBP >= 140 or DBP >= 90.: yes Clinical features of the TIA: speech disturbance without weakness Duration of symptoms: >= 60 minutes History of diabetes: no ABCD2 Score: 5 GCS Grabiel coma scale eye opening: Spontaneous Grabiel coma scale verbal response: Orientated Grabiel coma scale motor response: Obey commands [place] coma scale total score: 15 Course Orders Ordered: ED Orders 04/06/24 20:30 CT angio head and neck Stat CT head/brain wo con Stat EKG-12 Lead Stat 04/06/24 20:37 Complete Blood Count AUTO DIFF Stat Comprehensive Metabolic Panel Stat Ethanol (ETOH) Stat Lipase Stat PTT Partial Thromboplastin Rosalio Stat Prothrombin Time INR Stat Troponin & CK Cardiac Panel Stat Discontinued Medications Aspirin (Aspirin 81 Mg Chew Tab) 324 mg PO NOW ONE Stop: 04/06/24 23:51 Last Admin: 04/07/24 00:04 Dose: 324 mg Documented By: GC Vital Signs Vital signs: Vital Signs - 8 hr 04/06/24 20:16 04/06/24 21:00 04/06/24 21:00 Temperature 98.5 F Pulse Rate 69 56 L Respiratory Rate 18 24 Blood Pressure 172/86 H 166/109 H Pulse Oximetry 98 97 Oxygen Delivery Method Room Air 04/06/24 21:02 04/06/24 21:02 04/06/24 21:38 Temperature Pulse Rate 62 75 Respiratory Rate 23 Blood Pressure 161/77 H Pulse Oximetry 98 96 Oxygen Delivery Method 04/06/24 21:39 04/06/24 21:39 04/06/24 22:00 Temperature Pulse Rate 74 74 Respiratory Rate 27 H 21 Blood Pressure 189/87 H Pulse Oximetry 98 98 Oxygen Delivery Method 04/06/24 22:01 04/06/24 22:01 04/06/24 22:34 Temperature Pulse Rate 72 77 Respiratory Rate 21 43 H Blood Pressure 180/78 H Pulse Oximetry 98 97 Oxygen Delivery Method 04/06/24 22:36 04/06/24 22:37 04/06/24 22:37 Temperature Pulse Rate 79 79 Respiratory Rate 18 12 Blood Pressure 201/86 H Pulse Oximetry 99 99 Oxygen Delivery Method 04/06/24 22:39 04/06/24 22:39 04/06/24 23:00 Temperature Pulse Rate 78 Respiratory Rate 10 L Blood Pressure 177/79 H 168/73 H Pulse Oximetry 97 Oxygen Delivery Method 04/06/24 23:00 04/06/24 23:30 04/06/24 23:30 Temperature Pulse Rate 75 80 Respiratory Rate 19 15 Blood Pressure 177/84 H Pulse Oximetry 94 100 Oxygen Delivery Method 04/07/24 00:00 04/07/24 00:01 04/07/24 00:01 Temperature Pulse Rate 68 77 Respiratory Rate 32 H 26 H Blood Pressure 173/76 H Pulse Oximetry 100 98 Oxygen Delivery Method MDM - Neuro Symptoms/Deficit Lab Data Attestation: I reviewed the patient's lab results. 04/06/24 20:37 04/06/24 20:37 Labs: Lab Results 04/06/24 Range/Units 20:37 WBC 6.0 (4.5-11.0) X10^3/uL RBC 4.09 L (4.5-5.9) X10^6/uL Hgb 12.9 L (13.5-17.5) g/dL Hct 37.9 L (41-53) % MCV 92.6 (80-100) fL MCH 31.5 (26-34) PG MCHC 34.0 (30-36) % RDW 14.1 (11.6-14.8) % Plt Count 205 (150-400) X10^3/uL Neut % (Auto) 59.4 (50-75) % Lymph % (Auto) 27.6 (25-40) % Cannon % (Auto) 11.0 (3-14) % Eos % (Auto) 1.6 L (2-4) % Baso % (Auto) 0.4 (0-2) % Neut # (Auto) 3600 (3922-3991) /uL Lymph # (Auto) 1700 (8605-6835) /uL Cannon # (Auto) 700 (0-900) /uL Eos # (Auto) 100 (0-450) /uL Baso # (Auto) 0 (0-100) /uL PT 12.3 (9.4-12.5) SECONDS INR 1.1 (0.9-1.3) APTT 40 H (25.1-36.5) SECONDS Sodium 138 (137-145) mmol/L Potassium 3.9 (3.4-5.1) mmol/L Chloride 106 (98-107) mmol/L Carbon Dioxide 23 (22-32) mmol/L BUN 32 H (9-20) mg/dL Creatinine 1.27 H (0.66-1.25) mg/dL Estimated GFR 57 L (>60) mL/min BUN/Creatinine Ratio 25.2 H (6-22) Glucose 102 (80-110) mg/dL Calcium 9.6 (8.4-10.2) mg/dL Total Bilirubin 0.6 (0.2-1.3) mg/dL AST 35 (17-59) IU/L ALT 23 (<50) IU/L Alkaline Phosphatase 60 (38-126) U/L Total Creatine Kinase 133 (55-170) U/L Troponin I 0.033 (0.01-0.034) ng/mL Total Protein 6.9 (6.3-8.2) g/dL Albumin 4.1 (3.5-5.0) g/dL Globulin 2.8 (1.7-4.1) g/dL Albumin/Globulin Ratio 1.5 (1.0-2.8) Lipase 87 (23-300) U/L Ethyl Alcohol < 10 ( - 10) mg/dL Imaging Data CT scan - head: Radiologist's Impression: PROCEDURE: CT HEAD/BRAIN WO CON INDICATIONS: TIA TECHNIQUE: Noncontrast 4.5 mm thick angled axial sections acquired from the foramen magnum to the vertex, with coronal and sagittal reformats. For radiation dose reduction, the following was used: automated exposure control, adjustment of mA and/or kV according to patient size. COMPARISON: None. FINDINGS: Image quality: Diagnostic. CSF spaces: Basal cisterns are patent. No extra-axial fluid collections. Ventricles are normal in size and shape. Brain: No midline shift. No intracranial masses or hemorrhage. Lopez-white matter interface is normal. Skull and face: Calvarium and visualized facial bones are intact, without suspicious lesions. Sinuses: Visualized sinuses and mastoids are clear. IMPRESSION: Moderate atrophy and white matter chronic ischemic change. Old small right frontal white matter infarct and small right superior cerebellar cortical infarct CTA - brain/neck: Radiologist's Impression: PROCEDURE: CT ANGIO HEAD AND NECK INDICATIONS: TIA TECHNIQUE: After the administration of intravenous contrast, 1 mm thick sections acquired from the aortic arch through the [place] of [place]. MIP reformats of the arterial vasculature were utilized. For radiation dose reduction, the following was used: automated exposure control, adjustment of mA and/or kV according to patient size. COMPARISON: [facility], CT, CT ANGIO HEAD AND NECK, 11/17/2023, 10:08. FINDINGS: Cerebral CT Angiogram: Internal carotid arteries: Atherosclerotic vascular calcification the cavernous segments of both internal carotid arteries results in [id number] stenosis on the right. No aneurysm. Anterior cerebral arteries: Unremarkable. No significant stenosis. No occlusion. No aneurysm. Middle cerebral arteries: Unremarkable. No significant stenosis. No occlusion. No aneurysm. Posterior cerebral arteries: Unremarkable. No significant stenosis. No occlusion. No aneurysm. Basilar artery: Unremarkable. No significant stenosis. No occlusion. No aneurysm. Vertebral arteries: Diminutive left vertebral artery terminates in the posterior inferior cerebellar artery. Right vertebral artery dominance. Dural venous sinuses: Unremarkable given phase of enhancement. Other: Arterial phase brain parenchyma is unremarkable. Neck CT Angiogram: Internal carotid arteries: Unremarkable. No significant stenosis. No dissection or occlusion. Mild atherosclerotic plaque in the proximal ICA bilaterally. Common carotid arteries: Unremarkable. No significant stenosis. No dissection or occlusion. External carotid arteries: Unremarkable. No occlusion. Vertebral arteries: Left vertebral artery is diminutive patent. Right vertebral artery dominance. Other: None. Aortic Arch and Mediastinum: Partially visualized aortic arch unremarkable without evidence of aneurysm. Origins of the great vessels unremarkable. IMPRESSION: Unremarkable intracranial angiogram without large vessel occlusion, aneurysm or vascular malformation. Trace atherosclerotic calcification without proximal ICA stenosis in the neck. ECG Data Attestation: I personally reviewed and interpreted this ECG as follows: Interpretation: Sinus rhythm Ventricular rate is 63 Sinus arrhythmia Left axis deviation Normal QRS No ST T wave changes MDM Narrative Medical decision making narrative: Than a headache the patient is asymptomatic here in the emergency department. No focal neurologic deficits. Head CT and CTA of the head and neck show no acute pathology. Labs are unremarkable. Patient does have a history of a CVA. Was significantly hypertensive upon arrival but this did improve without specific intervention. He reports no history of high blood pressure. He does have an ABCD2 score of 5. I do feel that the patient would benefit from an admission to the hospital for further testing of TIA. He was given an aspirin here in the ER. Discussed the case with Dr. Sarah he was the patient's primary provider who will admit for further evaluation and treatment. Discussed the need for admission with the patient. He expressed understanding and agreement as well. Discharge Plan Departure Patient Disposition: Admitted as Observation Clinical Impression: Transient cerebral ischemia, Hypertension Admit Date/Time: 04/07/24 00:02 Admit Provider: Giancarlo Sarah
[2024-04-07] VITALS (54 sets, daily range): BP systolic 115–173; BP diastolic 56–76; PULSE 43–77; RESP 12–32; TEMP 36.5–36.8; O2SAT 91–100; BMI 20.7
[2024-04-07] MEDS: ASPIRIN 81 MG CHEW TAB 324 MG PO (00:04)
--- NOTE | 2024-04-07 07:38 | PC.NURSE ---
0715 This RNs first interaction with patient. AOx4. Resting quietly with eyes closed, VSS.
--- NOTE | 2024-04-07 09:21 | P.HP_ITS ---
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 He subsequently to these procedures discontinued all of his medications, and this was years ago (surgery was in 2012) He presented to the ER on the 06 of April complaining least 2 separate episodes confusion and slurring of his words that lasted for an hour or more. He also appeared to be not really making any sense when he was talking according to spouse. No other movement symptoms that patient or spouse is aware of Symptoms completely resolved but he was worried about a stroke and so came to the emergency department. He was found to be quite hypertensive in the ER peaking at 200 systolic and almost 110 diastolic. [facility] Medical History Small bowel obstruction Bilateral inguinal hernia Vision disorder Stroke (~2012) Migraines Compression fracture (~1964) Measles Chicken pox Tinnitus (~2017) Hearing loss (~2017) Cataracts, bilateral (~2018) Hypertension (~2012) Aortic stenosis (~2012) Skin cancer (~2016) Coronary artery disease (~2012) Pure hypercholesterolemia (05/26/16) Erectile dysfunction (05/26/16) Benign prostatic hyperplasia with lower urinary tract symptoms (05/26/16) Multiple actinic keratoses (05/26/16) Surgical History Anesthesia S/P ascending aortic replacement (~03/2013) S/P aortic valve replacement (~03/2013) S/P CABG (coronary artery bypass graft) (~03/2013) Family History Father History of heart disease Mother Cancer Sister Kidney failure Grandfather Cancer Grandmother Cancer Social History marital status: household members: spouse lives independently: Yes occupational status: employed Smoking Status: Never smoker alcohol intake: current substance use type: does not use Meds Home Medications and Allergies Allergies Allergy/AdvReac Type Severity Reaction Status Date / Time No Known Drug Allergies Allergy Verified 03/19/24 13:44 Review of Systems Review of Systems ROS: Yes All systems reviewed with the patient and are negative except as otherwise documented Exam Vital Signs (past 8 hours): - 04/07/24 01:30 04/07/24 02:00 04/07/24 02:30 Pulse Rate 63 61 53 L Respiratory Rate 18 15 16 Blood Pressure Pulse Oximetry 91 96 97 Oxygen Delivery Method 04/07/24 03:30 04/07/24 04:00 04/07/24 04:30 Pulse Rate 49 L 59 L 59 L Respiratory Rate 14 15 14 Blood Pressure Pulse Oximetry 96 97 97 Oxygen Delivery Method Room Air 04/07/24 05:00 04/07/24 05:30 04/07/24 06:00 Pulse Rate 59 L 57 L 54 L Respiratory Rate 15 14 Blood Pressure Pulse Oximetry 97 98 97 Oxygen Delivery Method 04/07/24 06:30 04/07/24 07:00 04/07/24 07:15 Pulse Rate 47 L 54 L 58 L Respiratory Rate Blood Pressure 131/62 Pulse Oximetry 97 97 99 Oxygen Delivery Method 04/07/24 07:28 04/07/24 07:28 04/07/24 07:30 Pulse Rate 57 L Respiratory Rate Blood Pressure 131/62 131/61 Pulse Oximetry 100 Oxygen Delivery Method 04/07/24 07:30 04/07/24 07:45 Pulse Rate 52 L 46 L Respiratory Rate Blood Pressure Pulse Oximetry 98 99 Oxygen Delivery Method Oxygen Delivery Method Room Air Narrative Exam Narrative: Non ill-appearing male in no obvious distress lying on a [facility] emergency department HEENT-unremarkable, normocephalic atraumatic Neck-no lymphadenopathy no bruits Lungs-clear anteriorly and posteriorly no wheezes no crackles good breath sounds Heart-regular rate and rhythm, no murmur, rub, or gallop. normal S1-S2 Abdomen-positive bowel tones, soft, nontender, nondistended, no hepatosplenomegaly, no masses palpable Neuro-normal to screening exam, gait not tested, no focal findings, cranial nerves appear to be intact Extremities-no cyanosis clubbing or edema Objective Labs 04/06/24 20:37 04/08/24 06:55 Labs: Laboratory Results - last 24 hr 04/06/24 20:37 WBC 6.0 RBC 4.09 L Hgb 12.9 L Hct 37.9 L MCV 92.6 MCH 31.5 MCHC 34.0 RDW 14.1 Plt Count 205 Neut % (Auto) 59.4 Lymph % (Auto) 27.6 [place] % (Auto) 11.0 Eos % (Auto) 1.6 L Baso % (Auto) 0.4 Neut # (Auto) 3600 Lymph # (Auto) 1700 [place] # (Auto) 700 Eos # (Auto) 100 Baso # (Auto) 0 PT 12.3 INR 1.1 APTT 40 H Sodium 138 Potassium 3.9 Chloride 106 Carbon Dioxide 23 BUN 32 H Creatinine 1.27 H Estimated GFR 57 L BUN/Creatinine Ratio 25.2 H Glucose 102 Calcium 9.6 Total Bilirubin 0.6 AST 35 ALT 23 Alkaline Phosphatase 60 Total Creatine Kinase 133 Troponin I 0.033 Total Protein 6.9 Albumin 4.1 Globulin 2.8 Albumin/Globulin Ratio 1.5 Lipase 87 Ethyl Alcohol < 10 Assessment & Plan Assessment & Plan narrative: 1. TIA-patient with a series of TIAs involving word-finding difficulties some degree of expressive aphasia and slurring of his speech. Patient also found to be quite hypertensive. Initial workup in the emergency department unremarkable including CT angiography of the head and neck as well as CT scan of the head. Patient has proven to have atherosclerotic vascular disease but does not appear to have large vessel disease based on imaging thus far He was status post a bioprosthetic aortic valve replacement and unclear whether not this is an MRI tolerant valve. I am not sure there is lot of benefit to obtaining a head MRI given that he was completely neurologically asymptomatic at this time and his other workup including CT scan and CT angiography is unremarkable. Therefore will focus on monitoring his rhythm for evidence of a rhythm disturbance has a possible source of clot to cause his TIA as well as repeat echocardiography. He had echocardiography performed earlier this year as he presented with some degree altered mental status and presumed infectious etiology. No abnormality was noted at that time but this is several months later with new symptoms and I think worth repeating an echocardiogram Patient clearly needs his blood pressure better controlled on would benefit from some degree of anticoagulation. Patient self discontinued all of his meds after his cardiac and vascular surgery over a decade ago. I will encourage him to go back on least an 81 mg aspirin a day and lipid lowering therapy. He clearly needs an antihypertensive and will choose lisinopril as an initial medication. 2. Hypertension-patient I think he would benefit from an antihypertensive to lower his overall risk. I am going to place him on lisinopril in effort to lower blood pressure. I considered a beta-lay but given higher likelihood of side effects occurring with beta-lay therapy in a patient who has already resistant to medication I would prefer to go with an PAN inhibitor such as lisinopril which is, in my experience, less likely to produce any significant side effect (except for cough which, which is easy to identify and will result in discontinuation) 3. Coronary disease-no evidence of active coronary artery disease at this time 4. VTE prophylaxis-patient would benefit from Lovenox which has been ordered 6. Code status-patient has previously requested full code in the event of a sudden cardiac or respiratory arrest which is confirmed and ordered at this time Time-Based Coding :: [TOTAL MINUTES] spent with patient and on the chart (including review of chart, obtaining history, exam, reviewing outside data, placing orders, documenting exam and treatment plan, and counseling patient) on [DATE]. PROFEE Charge Codes Initial inpatient/observation care: 42561
[2024-04-07] MEDS: ENOXAPARIN 40 MG/0.4 ML SYRINGE SUBCUT (10:14)
[2024-04-07] MEDS: ASPIRIN EC 81 MG TABLET PO (10:14)
[2024-04-07] MEDS: lisinopriL 10 MG TABLET PO (11:29)
--- NOTE | 2024-04-07 13:49 | DI.ECHO.S_ITS ---
[facility] : : [id number] : : [place] : : [id number] : : Phone: [phone] Echocardiogram Report + + :Name: ZAINAB ARIAS Study Date: 04/07/2024 Height: 70 in : :[facility] ReadingLocation: Weight: 145 lb : : Gender: Male BSA: 1.8 m2 : :: 1945 Age: 78 yrs BP: 134/56 mmHg: :Reason For Study: CVA : :Ordering Physician: KAIT, : :PASCUAL Douglas Performed By: Meghan Post : :Referring: PASCUAL CARBALLO : + + Interpretation Summary 1. Normal LV contractility. Estimated EF > 55% without WMA. Borderline cLVH. Impaired relaxation. 2. Normal RV contractility. 3. LAE present. All other chambers appears normal in size. 4. Bioprosthetic valve in aortic position with moderate insufficiency and moderate stenosis. Mean gradient of 14 mmHg with dimensionless index 0.31. 5. Intra-atrial shunt present on bubble study. 6. No obvious intracardiac masses/thrombi. 7. No hemodynamically significant pericardial effusion. 8. Low right sided filling pressures. 9. Severely dilated aortic root without obvious dissection. Conclusion: Normal biventricular systolic function with patent foramen ovale and moderately dysfunctional bioprosthetic aortic valve. No significant changes when compared with previous echo. Procedure: A two-dimensional transthoracic echocardiogram with color flow and Doppler was performed. The study quality was technically adequate. Comparison is made with the echocardiogram of 11-18-23. The heart rate ranged between 57-60 bpm during the study. Left Ventricle: The left ventricle is normal in size and wall thickness. The ejection fraction is estimated to be 55-60%. Diastolic parameters suggest a restrictive filling pattern consistent with probable significantly elevated filling pressures. Right Ventricle: The right ventricle grossly appears normal in size with probable normal systolic function. Atria: The left atrium is moderately dilated. Right atrial size is normal. Injection of contrast documented an interatrial shunt. Bubble study was captured on image frame(s) # 96. Mitral Valve: The mitral valve leaflets appear borderline thickened, but open well. There is a flat closure plane of the the mitral valve leaflets. There is mild to moderate mitral annular calcification. There is trace mitral regurgitation. Aortic Valve: The aortic valve is moderately calcified. There is a bioprosthetic aortic valve. The aortic root is dilated at 5.1 cm. There is moderate aortic regurgitation. Tricuspid Valve: The tricuspid valve leaflets are thin and pliable. There is trace tricuspid regurgitation. The right ventricular systolic pressure is estimated to be at least 24 mmHg based on an estimated right atrial pressure of 3 mm Hg. Pulmonic Valve: The pulmonic valve is not well seen, but is grossly normal. There is no pulmonic valvular regurgitation. Great Vessels: The aortic root is severely dilated. The ascending aorta is normal in size. The aortic arch is at the upper limits of normal in size. The IVC is of normal diameter and collapses greater than 50% with a sniff. This suggests a low right atrial pressure of 3 mm Hg. Pericardium/ Pleura There is no pericardial effusion. There is no pleural effusion. MMode/2D Measurements & Calculations LVIDd: 5.0 cm LVOT diam: 2.6 cm EPSS: 1.0 cm Ao root diam: 5.1 cm IVSd: 1.1 cm asc Aorta Diam: 3.5 cm LVPWd: 0.90 cm Ao Arch Diam (Prox Trans): 3.5 cm LV canchola. diameter/BSA (cm/m^2): 2.7 LA A2 area: 26.6 cm2 RA long axis: 4.7 cm LA A4 area: 31.1 cm2 RA area: 14.7 cm2 LA length (vol): 5.6 cm RA vol: 39.2 ml LA vol: 125.5 ml RA : 21.5 ml/m2 LA vol index: 69.0 ml/m2 IVC diam: 0.83 cm RVD1 (basal): 3.2 cm Doppler Measurements & Calculations Ao V2 max: 268.4 cm/sec LVOT Max Sloan: 73.8 cm/sec Ao V2 mean: 169.0 cm/sec LV V1 max P.2 mmHg Ao max P.8 mmHg LV V1 VTI: 17.5 cm Ao mean P.2 mmHg HUA(I,D): 1.7 cm2 Ao V2 VTI: 56.9 cm HUA(V,D): 1.5 cm2 sev ratio: 0.31 HUA indexed to BSA (cm^2/m^2): 0.91 AI P1/2t: 535.3 msec AI dec slope: 271.9 cm/sec2 MV E max sloan: 77.1 cm/sec TR max sloan: 228.1 cm/sec MV A max sloan: 74.2 cm/sec TR max P.8 mmHg MV E/A: 1.0 PA V2 max: 48.7 cm/sec Med Peak E' Sloan: 5.2 cm/sec PA V2 mean: 32.0 cm/sec E/E' med: 14.9 PA mean P.49 mmHg Lat Peak E' Sloan: 8.9 cm/sec PA pr(Accel): 5.4 mmHg E/E' lat: 8.7 E/e' average: 11.8 MV dec time: 0.36 sec SV(LVOT): 94.6 ml Reading Physician:
--- NOTE | 2024-04-07 14:03 | PT-IP ANOTE ---
PT consult received. PT reviewed chart and checked on pt who is still in the ED. Pt is currently receiving ECHO. Pt to adm to floor. Will initiate eval next date.
[2024-04-07] MEDS: ATORVASTATIN 20 MG TABLET PO (21:28)
[2024-04-08 03:00] VITALS: BP 132/70; PULSE 52; RESP 18; TEMP 36.7; O2SAT 98
[2024-04-08 07:00] VITALS: O2SAT 98
[2024-04-08 07:18] LABS: BUN Creatinine Ratio 26.2 (6-22); Blood Urea Nitrogen 28 mg/dL (9-20); Calcium 9.5 mg/dL (8.4-10.2); Carbon Dioxide 22 mmol/L (22-32); Chloride 107 mmol/L (98-107); Estimated Glomerular Filt Rate > 60 mL/min (>60); Glucose 103 mg/dL (80-110); HEMOLYSIS < 15 (0-50); Potassium 4.1 mmol/L (3.4-5.1); Sodium 136 mmol/L (137-145)
[2024-04-08 08:00] VITALS: BP 137/75; PULSE 65; RESP 16; TEMP 36.2; O2SAT 98
[2024-04-08 08:46] VITALS: BP 137/75; PULSE 65
[2024-04-08] MEDS: lisinopriL 10 MG TABLET PO (08:46)
[2024-04-08] MEDS: ENOXAPARIN 40 MG/0.4 ML SYRINGE SUBCUT (08:47)
[2024-04-08] MEDS: ASPIRIN EC 81 MG TABLET PO (08:47)
--- NOTE | 2024-04-08 09:09 | PM.DS.1 ---
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 He subsequently to these procedures discontinued all of his medications, and this was years ago (surgery was in 2012) He presented to the ER on the 06 of April complaining least 2 separate episodes confusion and slurring of his words that lasted for an hour or more. He also appeared to be not really making any sense when he was talking according to spouse. No other movement symptoms that patient or spouse is aware of Symptoms completely resolved but he was worried about a stroke and so came to the emergency department. He was found to be quite hypertensive in the ER peaking at 200 systolic and almost 110 diastolic. Discharge Providers Provider Date of admission: 04/07/24 00:02 Discharge Date: 04/08/24 Primary care physician: Giancarlo Sarah MD Consults: 04/07/24 11:14 Consult to Discharge Planning Routine Comment: Consult to Occupational Therapy Evaluate & Treat Comment: Physician Instructions: Evaluate and treat Consult to Physical Therapy Evaluate & Treat Comment: Physician Instructions: Evaluate and Treat Consult to Speech Therapy Evaluate & Treat Comment: Physician Instructions: Evaluate and treat Discharge provider: Giancarlo Sarah MD Summary Hospital Course Discharge Diagnosis: 1. Transient ischemic attack/transient cerebral ischemia 2. Hypertension 3. Mixed hyperlipidemia 4. Coronary artery disease, not active Hospital Course: Patient was admitted as above. He was somewhat hypertensive although that is came down nicely without specific intervention. Imaging workup was unremarkable. He was not felt to be a candidate for an MRI of the brain given negative imaging as well as unknown status with unknown details of his bioprosthetic implanted aortic valve (not all bioprosthetic aortic valves are MRI compatible). Patient had no additional neurologic symptoms. Patient had no dysrhythmias on telemetry monitoring. Echocardiography was unchanged. Does show patent foramen ovale which has been seen previously. His bioprosthetic valve appears to be functioning normally Patient was felt to benefit from additional medication at discharge. He had previously discontinued all of his usual meds which included lipid lowering therapy antihypertensives etcetera following his cardiac surgery. It was strongly recommended him that he resume taking an aspirin 81 mg daily as well as something like atorvastatin for lipid lowering which has been shown to lower risk of stroke and given his hypertension it was my believe that he would benefit from antihypertensive therapy as well. He tolerated lisinopril 10 mg daily in the hospital without difficulty and will plan to continue that. Had a fairly long discussion with the patient trying to emphasize the importance of continuing with these medications which should lower his risk vascular complications including stroke and recurrent cardiac issues down the road. Hopefully he will continue these at this point Patient should have an outpatient security monitor to evaluate for dysrhythmias for longer period of time. Status at Discharge Cognitive/behavioral status at discharge: at baseline, oriented Functional status at discharge: independent ambulation Overall status at discharge: patient is back to baseline Exam Vital Signs (past 8 hours): - 04/08/24 03:00 04/08/24 08:00 04/08/24 08:46 Temperature 98.1 F 97.2 F L Pulse Rate 52 L 65 65 Respiratory Rate 18 16 Blood Pressure 132/70 137/75 137/75 Pulse Oximetry 98 98 Oxygen Flow Rate 0 Oxygen Delivery Method Room Air Oxygen Flow Rate 0 Objective Labs 04/06/24 20:37 04/08/24 06:55 Labs: Laboratory Results - last 24 hr 04/08/24 06:55 Sodium 136 L Potassium 4.1 Chloride 107 Carbon Dioxide 22 BUN 28 H Creatinine 1.07 Estimated GFR > 60 BUN/Creatinine Ratio 26.2 H Glucose 103 Calcium 9.5 [facility] Medical History Small bowel obstruction Bilateral inguinal hernia Vision disorder Stroke (~2012) Migraines Compression fracture (~1964) Measles Chicken pox Tinnitus (~2017) Hearing loss (~2017) Cataracts, bilateral (~2019) Hypertension (~2012) Aortic stenosis (~2012) Skin cancer (~2016) Coronary artery disease (~2012) Pure hypercholesterolemia (05/26/16) Erectile dysfunction (05/26/16) Benign prostatic hyperplasia with lower urinary tract symptoms (05/26/16) Multiple actinic keratoses (05/26/16) Surgical History Anesthesia S/P ascending aortic replacement (~03/2013) S/P aortic valve replacement (~03/2013) S/P CABG (coronary artery bypass graft) (~03/2013) Family History Father History of heart disease Mother Cancer Sister Kidney failure Grandfather Cancer Grandmother Cancer Social History marital status: household members: spouse lives independently: Yes occupational status: employed Smoking Status: Never smoker alcohol intake: current substance use type: does not use Discharge Assessment & Plan Assessment and Plan Plan of Treatment: Discharge home with plans for 14 day Zio Discharge medications should include aspirin, lipid lowering therapy with the atorvastatin 20 mg daily and lisinopril 10 mg daily as an antihypertensive Discharge Plan Discharge Plan Patient Disposition: Home Discharge orders & Medications Prescriptions: New atorvastatin 20 mg Tablet 20 mg PO BEDTIME Qty: 90 3RF aspirin 81 mg Tablet,Delayed Release (Dr/Ec) 81 mg PO DAILY Qty: 365 0RF lisinopril 10 mg Tablet 10 mg PO DAILY Qty: 90 3RF Follow up/Referrals: Giancarlo Sarah MD [Primary Care Provider] - 1 Month Discharge Health Status Multidrug resistant organism: No MDRO Diet/Activity/Treatments Diet: Diet as Tolerated, Low-fat, Low-sodium and Low-cholesterol Visit Report/Discharge Packet Stand Alone Forms: Patient Portal/API, Stroke Signs & Symptoms Discharge Data Primary Care Provider: Giancarlo Sarah Attending Provider: Giancarlo Sarah Admit Date/Time: 04/07/24 00:02 [facility] PROFEE Charge Codes Discharge inpatient/observation: [id number]
--- NOTE | 2024-04-08 11:15 | CM.DANOTE ---
Initial DCP Assessment Visit Note Reviewed EMR and team rounds for status updates. Went to meet with pt/spouse at bedside, however they were working with OT at the time of this visit. Pt lives independently with his in their own home in [facility]. His is present and will transport him home after he's done working with therapies. No DCP needs identified for assistance at this time. Payor: Wil[facility] PCP: Dr. Sarah Pt is a 78 year-old M with a hx of prior CVA's presents to the ED with c/o 2-separate stroke-like episodes. He states that each time he was confused and slurring his words, lasting for approx. an hour each time. Symptoms resolved before he arrived at the ED, although he was found to be hypertensive. He was given aspirin in the ED and was placed in OBS for further evaluation/monitoring of his TIA. Plan is for him to be started on anticoagulation, per Dr. Sarah, and has been medically cleared for home d/c. He will f/u OP with Dr. Sarah for further tx planning needs. Discharge Planning/Care Management CM Discharge Assessment Start: 04/08/24 11:11 Freq: Status: Active Protocol: Document 04/08/24 11:11 DPL (Rec: 04/08/24 11:15 DPL [id number]) Discharge Planning Assessment Assigned Solutions Developer KAYLEEN Floyd Advance Directives? Yes Advance Directives on File No History Provided By Medical Record Expected Length of Stay 1 Has Patient been admitted in last 30 No days? Prior Living Arrangements House Household Members spouse Type of transporation used prior to Drives own vehicle admit Independent with ADL's Yes Is patient alert and oriented? Yes Caregiver for Another No Comment u/k Patient/Family Preference OP PT Therapy Comment No anticipated d/c needs at this time. Barriers to Discharge No Discharge Plan Home Transportation Arrangement Family Referrals Initiated None needed Whiteboard Updated in Patient Room with Yes name and ext. # of Solutions Developer Review Status In Process Please Provide Date Initial DC 04/08/24 Assessment Was Performed
--- NOTE | 2024-04-08 11:22 | PT.IIE ---
Surgical History (Last Reviewed 04/08/24 @ 09:12 by Giancarlo Sarah MD) Anesthesia S/P aortic valve replacement (~03/2013) S/P ascending aortic replacement (~03/2013) S/P CABG (coronary artery bypass graft) (~03/2013) Medical History (Last Reviewed 04/08/24 @ 09:12 by Giancarlo Sarah MD) Aortic stenosis (~2012) Benign prostatic hyperplasia with lower urinary tract symptoms (05/26/16) Bilateral inguinal hernia Cataracts, bilateral (~2018) Chicken pox Compression fracture (~1964) Coronary artery disease (~2012) Erectile dysfunction (05/26/16) Hearing loss (~2017) Hypertension (~2012) Measles Migraines Multiple actinic keratoses (05/26/16) Pure hypercholesterolemia (05/26/16) Skin cancer (~2016) Small bowel obstruction Stroke (~2012) Tinnitus (~2017) Vision disorder Physical Therapy Inpatient Evaluation/Re-Eval M1 PT/OT-IP Prior Functional Status Start: 04/07/24 13:55 Freq: NEEDED Status: Active Protocol: Document 04/08/24 11:00 MB (Rec: 04/08/24 11:22 [id number]) Medical Review Prior Functional Status Medical History Reviewed Yes Diet/Fluid Consistency Regular Communication Appears [place], pt is hypoverbal Mobility and Gait I Activities of Daily Living and IADL's I Prior Functional Level (Other details) Works nights at [employer] in [facility] and has to lift boxes Social History Household Members spouse Living Arrangements House Number of Floors (Floors) One Floor Number of Stairs To Enter/Railing? 2 steps and no rail to enter Home Environment Standard Height Toilet,Walk in Shower,Tub/Shower Home Equipment Grab Bars In Shower Employment Status [employer]er Employed M2 PT-IP Current Condition Start: 04/07/24 13:55 Freq: NEEDED Status: Active Protocol: Document 04/08/24 11:00 MB (Rec: 04/08/24 11:22 MB [id number]) Physical Therapy Current Condition Current Condition Evaluation Date 04/08/24 Treatment Diagnosis ? stroke M3 PT-IP Subjective Start: 04/07/24 13:55 Freq: NEEDED Status: Active Protocol: Document 04/08/24 11:00 MB (Rec: 04/08/24 11:22 MB [id number]) Subjective Physical Therapy Visit Type Type Initial Evaluation Visit Start Time 11:00 Visit Stop Time 11:15 Number of SOCIAL AND POLITICAL STUDIES PROFESSOR Visits 0 Physical Therapy Visit Comments Patient Comments Pt with OT upon PT arrival and pt does not have spontaneous comments or concerns. Therapy Pain Assessment Pain When Pain Assessed At Rest Pain Present Pain Present Denied Pain M4 PT-IP Mobility and Gait Start: 04/07/24 13:55 Freq: NEEDED Status: Active Protocol: Document 04/08/24 11:00 MB (Rec: 04/08/24 11:22 [id number]) PT-Transfer Assessment Sit to and From Stand Sit to and from Stand Standby Assistance Equipment Transfer Assistive Device Gait Belt Orthotic/Prosthetic Devices or Brace: No Transfers Transfer Destination Chair Transfer Technique Ambulation Transfer Ability Level of Assist Standby Assistance Comments Mobility Comments SBA d/t cognitive challenges Gait Assessment Gait Gait Assistance Required: Standby Assistance Distance (Feet) 75 Able to Maintain Weight Bearing Status Yes During Gait Assistive Devices Assistive Device None Orthotic/Prosthetic Devices or Brace: No Gait Deviations General Gait Pattern Within Normal Limits Factors Limiting Gait Function Factors Limiting Gait Function Poor Safety Awareness Comments Gait Comments Pt with some cognitive challenges and [place] and so SBA. He is able to gait train 75' x2 to steps and back to room and stoop down to case picker PT's pen off the floor without LOB Stair Climbing Assessment Evaluation Level of Assist On Stairs Standby Assistance Devices Stair Climbing Assistive Devices None Technique/Endurance Stair Climbing Direction Ascend and Descend Stair Climbing Technique Step Over Step Number of Steps Climbed 3 Query Text: Stair Climbing Set # Repetitions (reps) 1 PT-Balance Assessment Sitting Balance and Reactions Static Sitting Balance Ability Normal Dynamic Sitting Balance Ability Good Standing Balance and Reactions Static Standing Balance Ability Good Dynamic Standing Balance Ability Good Device Used None M5 PT-IP Objective Assessments Start: 04/07/24 13:55 Freq: NEEDED Status: Active Protocol: Document 04/08/24 11:00 MB (Rec: 04/08/24 11:22 MB [id number]) Orientation Orientation/Cognition Level of Alertness Confusional State Orientation Name,Age,Birthday,Month,Place, Situation Language Function Ability Hard of Hearing Safety Awareness Decreased Safety Awareness Comments Pt is no A&O to date, day of week or year or holiday. States Day. When cued it is Labor Day, he is unable to deduct that it is a Monday . Pt states it is Monday Gross Range of Motion Upper Extremity ROM Impairments Defer to OT Lower Extremity ROM Assessment Within Functional Limits Strength Lower Extremity Strength Assessment Within Functional Limits Coordination Assessment Gross Coordination Gross Coordination Impaired Assessment Foot Tapping Test Minimal Impairment Heel on Tinsley Test Minimal Impairment Sensation Assessment Comments Sensation Comments No paresthesias noted Muscle Tone Muscle Tone WNL Yes M6 PT-IP Treatment Start: 04/07/24 13:55 Freq: NEEDED Status: Active Protocol: Document 04/08/24 11:00 MB (Rec: 04/08/24 11:22 [id number]) Physical Therapy Treatment Education Education Provided Safety Other Treatments Other Treatment Performed Ed pt on benefits of getting hearing checked to help with balance and communication M7 PT-IP Assessment and Plan Start: 04/07/24 13:55 Freq: NEEDED Status: Active Protocol: Document 04/08/24 11:00 MB (Rec: 04/08/24 11:22 [id number]) PT Summary Assessment and Plan Potential Rehabilitation Potential Good Status of Condition at Evaluation Evolving Summary Progress Towards Goals Safe For Discharge Assessment Summary Pt is a gentleman presenting with some cognitive challenges and [place]. His LE coordination is mildly impaired though he is able to gait train from room to steps and back and perform 3 step training with SBA and no rail. He is able to case picker pen off the floor. Recommend hearing checked outpatient and ongoing OPPT for balance and strengthening if he is agreeable. Frequency of Treatment Frequency Of Treatment Discharge Recommendations To Nursing Amount of Assist Needed Standby Assistance Discharge Recommendations PT Discharge Recommendations Home with Assistance, Outpatient PT Transportation Needs at Discharge Private Vehicle
--- NOTE | 2024-04-08 11:53 | OT.IP.EVAL ---
Past Medical History (Last Reviewed 04/08/24 @ 09:12 by Giancarlo Sarah MD) Aortic stenosis (~2012) Benign prostatic hyperplasia with lower urinary tract symptoms (05/26/16) Bilateral inguinal hernia Cataracts, bilateral (~2018) Chicken pox Compression fracture (~1964) Coronary artery disease (~2012) Erectile dysfunction (05/26/16) Hearing loss (~2017) Hypertension (~2012) Measles Migraines Multiple actinic keratoses (05/26/16) Pure hypercholesterolemia (05/26/16) Skin cancer (~2016) Small bowel obstruction Stroke (~2012) Tinnitus (~2017) Vision disorder Surgical History (Last Reviewed 04/08/24 @ 09:12 by Giancarlo Sarah MD) Anesthesia S/P aortic valve replacement (~03/2013) S/P ascending aortic replacement (~03/2013) S/P CABG (coronary artery bypass graft) (~03/2013) Occupational Therapy Inpatient Evaluation/Re-Eval M1 PT/OT-IP Prior Functional Status Start: 04/07/24 13:55 Freq: NEEDED Status: Active Protocol: Document 04/08/24 11:53 [facility] (Rec: 04/08/24 12:13 [facility] [id number]) Medical Review Prior Functional Status Medical History Reviewed Yes Diet/Fluid Consistency Regular Communication Appears [place], pt is hypoverbal Mobility and Gait I Activities of Daily Living and IADL's I Prior Functional Level (Other details) 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 OT-IP Current Condition Start: 04/08/24 11:53 Freq: Status: Active Protocol: Document 04/08/24 11:53 [facility] (Rec: 04/08/24 12:13 [facility] [id number]) Occupational Therapy Current Condition Current Condition Evaluation Date 04/08/24 Treatment Diagnosis TIA Diagnosis Onset Date 04/07/24 M3 OT- IP Subjective and Pain Start: 04/08/24 11:53 Freq: Status: Active Protocol: Document 04/08/24 11:53 [facility] (Rec: 04/08/24 12:13 [facility] [id number]) OT- Subjective Occupational Therapy Visit Type Type Initial Evaluation Visit Start Time 10:45 Visit Stop Time 11:53 Occupational Therapy Visit Comments Patient Comments Pt getting dressed when OT came in to see him. Patient/Caregiver Goals TO go home. OT Pain Assessment Pain When Pain Assessed At Rest Pain Present Pain Present Denied Pain M4 OT- IP ADL's Start: 04/08/24 11:53 Freq: Status: Active Protocol: Document 04/08/24 11:53 [facility] (Rec: 04/08/24 12:13 [facility] [id number]) OT NJZ-Deys-Vumcdun General Evaluation Self-Feeding Ability Independent OT ADL-Grooming General Evaluation Grooming Ability Independent OT ADL-Oral Care General Eval Oral Care Ability Independent OT ADL-Dressing General Eval Upper Body Dressing Ability Independent Lower Body Dressing Ability Independent OT ADL-Toileting General Evaluation Toileting Ability Independent OT ADL-Bathing Comments OT Bathing Comments Suggested pt get a grab bar for the shower and shower chair. M5 OT- IP IADL's Start: 04/08/24 11:53 Freq: Status: Active Protocol: Document 04/08/24 11:53 [facility] (Rec: 04/08/24 12:13 [facility] [id number]) OT-Instrumental Activities of Daily Living Deficits IADL Deficits Identified Deficits Home Safety Awareness Awareness of Need for Assistance at Home Decreased Awareness Home Safety Comments Pt's states pt has had more difficulty with his medications and to start to assist him. Pt's states does the bills. Medication Management Medication Management Caregiver Provides Supervision Money Management Money Management Caregiver Provides Assistance Meal Preparation Meal Preparation Caregiver Provides Assist Cosmetics Demonstrator Cosmetics Demonstrator Caregiver Provides Assist Driving Driving Concerns Identified Regarding Safety M6 OT- IP Functional Cognition Start: 04/08/24 11:53 Freq: Status: Active Protocol: Document 04/08/24 11:53 [facility] (Rec: 04/08/24 12:13 [facility] [id number]) Cognitive Factors Limiting Selfcare Function Cognitive Ability Level of Alertness Alert Patient Orientation Name,Age,Birthday,Month,Place, Situation Attention Span Ability Capable of Focused Attention, Capable of Sustained Attention Ability to Follow Commands Able to Follow One Step Commands Memory Description Short Term Impaired,Working Impaired Problem Solving Ability Needs Assist to Identify Solutions Cognitive Tests SLUMS Pt scored 25/30 which implies mild neurocognitive disorders. Pt not able to subtract 100- 23, able to recall 10 animals in one minute, and able to recall 3 /5 objects after time passed. Cognitive Comments Cognitive Assessment Comments Per pt's pt has been having more difficulty with his hearing and that she has to talk directly in front on him so he is able to understand her. Pt's states at times does well and at times not remembering what to do. Pt would benefit from getting his hearing checked. Pt scored 228 seconds on [place] Making Part B which implies severe deficits for visual attention, speed of processing, mental flexibility, executive functioning, and task switching. At times pt doing well and at times forgetful and very distracted during the assessment. It is strongly suggested pt not drive at this time and maybe best to wait to go back to work as pt scheduled to go back tonight. Pt not remembering the year and states 2003 initially, and no able to recall the date after repetition. Eventually pt able to recall that is is Labor day versus Memorial day. OT- Vision and Hearing OT- Hearing Assessment OT- Hearing Assessment Hearing Impaired OT- Vision Assessment Visual Acuity Glasses All The Time Visual Attentiveness WFL Occular Pursuits WFL Visual Convergence WFL Visual Flores WFL M7 OT- IP Mobility and Balance Start: 04/08/24 11:53 Freq: Status: Active Protocol: Document 04/08/24 11:53 [facility] (Rec: 04/08/24 12:13 [facility] [id number]) OT-Transfer Assessment Sit to and From Stand Sit to and from Stand Independent Transfers Transfer Ability Independent Technique Transfer Destination Chair Transfer Technique Stand Step Pivot Devices Transfer Assistive Devices None Comments Mobility Comments Pt is independent in the room. OT- Balance Assessment Sitting Balance and Reactions Static Sitting Balance Ability Normal Dynamic Sitting Balance Ability Normal Standing Balance and Reactions Static Standing Balance Ability Normal Dynamic Standing Balance Ability Good M8 OT- IP Objective Assessments Start: 04/08/24 11:53 Freq: Status: Active Protocol: Document 04/08/24 11:53 [facility] (Rec: 04/08/24 12:13 [facility] [id number]) OT Gross Range of Motion Upper Extremity Range of Motion Assessment Within Functional Limits OT Strength Upper Extremity Strength Assessment Within Functional Limits OT- Coordination Assessment Upper Extremity Finger to Nose Test Within Functional Limits Comments Coordination Comments 9 hole peg test 26 RUE and 29 LUE and 50% for age. Pt has difficulty to do his cuff buttons. M9 OT- IP Assessment and Plan Start: 04/08/24 11:53 Freq: Status: Active Protocol: Document 04/08/24 11:53 [facility] (Rec: 04/08/24 12:13 [facility] [id number]) OT Summary Assessment and Plan Potential Rehabilitation Potential Excellent Analytic Complexity at Evaluation Moderate Summary OT Impairments Coordination,Functional Cognition Progress Towards Goals Progressing Toward Goals Assessment Summary Pt MOD complexity and here due to TIA and main barriers are decreased STM, functional cognition. Pt scored 25/30 on the SLUMS which implies mild neurocognitive deficits. Pt scored 228 seconds on [place] Making Part B which implies severe deficits for speed of processing, mental flexibility, executive functioning, task switching and visual attentions. Went over strategies for STM. Pt may benefit form outpt OT/RESEARCH WORKER KITCHEN pending if issues not clearing up.Spoke to nursing and suggest would be best if pt did not have to work tonight and not thinking well at this time and would benefit from time to recover. Goals OT-Other Goals Pt able to manage medications on his own, use of memory techniques daily. Days to Meet Goals 2 Frequency of Treatment Frequency Of Treatment Once a Day Treatment Plan OT Treatment Plan Functional Cognition Training, Patient/Family Education, Discharge Planning Discharge Recommendations OT Discharge Recommendations Outpatient PT Other Discharge Recommendations Pt may benefit frou outpt OT versus RESEARCH WORKER KITCHEN Home Equipment Needs shower chair, grab bar Transportation Needs at Discharge Private Vehicle
--- NOTE | 2024-04-08 12:28 | PC.NURSE ---
Day shift: DIscharge instructions gone over with patient and patient's spouse. All questions answered, they both stated understanding. PIV and tele removed prior to discharge. All belongings with patient. PCT Mika escorted patient via wheelchair to exit.
== END 2024-04-08 12:29 | disposition home or self-care (01) ==
LOC: ED 04-07 00:02 → AC 04-07 00:02
PROVIDERS: Admitting Provider Internal Medicine; Emergency Provider Emergency Medicine; PCP Internal Medicine; Visit Provider Internal Medicine
DX: G45.9 Transient cerebral ischemic attack, unspecified (principal); I10 Essential (primary) hypertension; E78.2 Mixed hyperlipidemia; Z86.73 Personal history of transient ischemic attack (TIA), and cerebral infarction without residual deficits
CPT/HCPCS: 36415; 70450; 70496; 70498; 80048; 80053; 80320; 82550; 83690; 84484; 85025; 85610; 85730; 93005; 93010; 93306; 96372; 97129; 97161; 97166; 97530; 97535; 99284; G0378; J1650; Q9967

== ENCOUNTER → 2024-04-11 09:50 | Outpatient (CLI) | payer MEDICARE, SELFPAY ==
[2024-04-07 07:39] VITALS: BMI 20.7
== END ==
LOC: CAR 09:50
PROVIDERS: PCP Internal Medicine; Referring Provider Internal Medicine; Visit Provider Internal Medicine
DX: G45.9 Transient cerebral ischemic attack, unspecified (principal); I10 Essential (primary) hypertension
CPT/HCPCS: 93246

== ENCOUNTER → 2024-06-03 10:44 | Outpatient (CLI) | payer OTHER, SELFPAY ==
[2024-04-07 07:39] VITALS: BMI 20.7
--- NOTE | 2024-06-03 10:45 | DI.RAD.S_ITS ---
PROCEDURE: XR FOOT RT MIN 3V INDICATIONS: right foot injury TECHNIQUE: 3 views of the foot were acquired. COMPARISON: None. FINDINGS: Bones: No acute fractures or dislocations. No suspicious bony lesions. 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 Mild degenerative changes at the interphalangeal joints of the toes. Mild chronic posttraumatic deformity of the 5th metatarsal. Soft tissues: No suspicious soft tissue calcifications IMPRESSION: No acute osseous abnormality. If there is continued clinical concern or persistent symptoms, repeat radiographs or cross-sectional imaging (e.g. CT, MRI) may be helpful for further evaluation. Approved by: Braden Martin M.D. on 06/03/2024 at 15:33
== END ==
PROVIDERS: PCP Internal Medicine; Referring Provider Nurse Practitioner Family; Visit Provider Nurse Practitioner Family
DX: S97.81XA Crushing injury of right foot, initial encounter (principal); M19.071 Primary osteoarthritis, right ankle and foot; X58.XXXA Exposure to other specified factors, initial encounter
CPT/HCPCS: 73630

== ENCOUNTER → 2025-01-17 12:24 | Outpatient (CLI) | payer MEDICARE, SELFPAY ==
[2024-04-07 07:39] VITALS: BMI 20.7
--- NOTE | 2025-01-17 12:25 | DI.RAD.S_ITS ---
PROCEDURE: XR CHEST 2V INDICATIONS: chest pain TECHNIQUE: 2 views of the chest were acquired. COMPARISON: [facility], CR, XR CHEST 1V, 11/17/2023, 12:14. FINDINGS: Surgical changes and devices: Midline sternal wires, mediastinal vascular clips and cardiac valve prosthesis Lungs and pleura: Lungs are clear. No pleural effusions or pneumothorax. Mediastinum: Heart size is enlarged Bones and chest wall: No suspicious bony abnormalities. Soft tissues appear unremarkable. IMPRESSION: Cardiomegaly without vascular congestion. Approved by: Vinny Lockett M.D. on 01/17/2025 at 19:01
== END ==
PROVIDERS: PCP Internal Medicine; Referring Provider Internal Medicine; Visit Provider Internal Medicine
DX: I51.7 Cardiomegaly (principal); R07.9 Chest pain, unspecified
CPT/HCPCS: 71046

== ENCOUNTER → 2025-05-29 09:13 | Outpatient (CLI) | payer MEDICARE, SELFPAY ==
[2024-04-07 07:39] VITALS: BMI 20.7
[2025-05-29 09:56] LABS: Add Manual Diff / Slide Review NO; Hematocrit 39.5 % (41-53); Hemoglobin 13.6 g/dL (13.5-17.5); Lymphocytes Absolute Auto 1200 /uL (1100-4500); Mean Corpuscular HGB Conc 34.4 % (30-36); Mean Corpuscular Hemoglobin 32.4 PG (26-34); Mean Corpuscular Volume 94.2 fL (80-100); Platelet Count 156 X10^3/uL (150-400)
[2025-05-29 10:24] LABS: Alanine Aminotransferase 16 IU/L (<50); Albumin 4.2 g/dL (3.5-5.0); Albumin Globulin Ratio 1.6 (1.0-2.8); Alkaline Phosphatase 55 U/L (38-126); Blood Urea Nitrogen 30 mg/dL (9-20); Calcium 10.0 mg/dL (8.4-10.2); Carbon Dioxide 27 mmol/L (22-32); Chloride 104 mmol/L (98-107); Cholesterol 212 mg/dL (140-199); Estimated Glomerular Filt Rate > 60 mL/min (>60); Globulin 2.6 g/dL (1.7-4.1); Glucose 90 mg/dL (70-99); HDL Cholesterol 55 mg/dL (40-60); HEMOLYSIS < 15 (0-50); Potassium 4.4 mmol/L (3.4-5.1); Sodium 139 mmol/L (137-145); Total Protein 6.8 g/dL (6.3-8.2); Triglycerides 111 mg/dL (35-150)
[2025-05-29 10:48] LABS: TSH w/ Reflex to FT4 0.26 uIU/mL (0.47-4.68)
[2025-05-29 11:14] LABS: Free T4, Direct Thyroxine 0.95 ng/dL (0.78-2.19)
== END ==
PROVIDERS: PCP Internal Medicine; Referring Provider Internal Medicine; Visit Provider Internal Medicine
DX: I10 Essential (primary) hypertension (principal); I25.10 Atherosclerotic heart disease of native coronary artery without angina pectoris; E78.00 Pure hypercholesterolemia, unspecified; K40.20 Bilateral inguinal hernia, without obstruction or gangrene, not specified as recurrent; E03.9 Hypothyroidism, unspecified
CPT/HCPCS: 36415; 80053; 80061; 84439; 84443; 85025

== ENCOUNTER → 2025-07-08 13:56 | Outpatient (CLI) | payer MEDICARE, SELFPAY ==
[2024-04-07 07:39] VITALS: BMI 20.7
--- NOTE | 2025-07-08 13:58 | DI.RAD.S_ITS ---
PROCEDURE: XR CHEST 2V INDICATIONS: dyspnea TECHNIQUE: 2 views of the chest were acquired. COMPARISON: [facility], CR, XR CHEST 2V, 01/17/2025, 12:27. FINDINGS: Surgical changes and devices: None. Lungs and pleura: Lungs are clear. No pleural effusions or pneumothorax. Mediastinum: Previous sternotomy and valve replacement. Mild cardiac enlargement. Atheromatous plaques are noted in the thoracic aorta. Bones and chest wall: No suspicious bony abnormalities. Soft tissues appear unremarkable. Multilevel degenerative disc disease noted. Healed mid right clavicle fracture deformity. IMPRESSION: Cardiomegaly with previous sternotomy and valve replacement. Hemorrhage No acute cardiopulmonary abnormality is seen. Dictated by: Jessica Hannah M.D. on 07/09/2025 at 9:33 Approved by: Jessica Hannah M.D. on 07/09/2025 at 9:35
[2025-07-08 14:42] LABS: Add Manual Diff / Slide Review NO; Hematocrit 42.3 % (41-53); Hemoglobin 14.4 g/dL (13.5-17.5); Lymphocytes Absolute Auto 1100 /uL (1100-4500); Mean Corpuscular HGB Conc 34.0 % (30-36); Mean Corpuscular Hemoglobin 32.3 PG (26-34); Mean Corpuscular Volume 94.9 fL (80-100); Platelet Count 207 X10^3/uL (150-400)
[2025-07-08 15:28] LABS: Alanine Aminotransferase 19 IU/L (<50); Albumin 4.8 g/dL (3.5-5.0); Albumin Globulin Ratio 1.8 (1.0-2.8); Alkaline Phosphatase 58 U/L (38-126); Blood Urea Nitrogen 28 mg/dL (9-20); Calcium 10.2 mg/dL (8.4-10.2); Carbon Dioxide 27 mmol/L (22-32); Chloride 104 mmol/L (98-107); Estimated Glomerular Filt Rate > 60 mL/min (>60); Globulin 2.7 g/dL (1.7-4.1); Glucose 99 mg/dL (70-99); HEMOLYSIS < 15 (0-50); Potassium 5.1 mmol/L (3.4-5.1); Sodium 140 mmol/L (137-145); Total Protein 7.5 g/dL (6.3-8.2)
[2025-07-08 15:34] LABS: NT-proBNP (BNP-Adult 18+) 19000 pg/mL (<450)
== END ==
PROVIDERS: PCP Internal Medicine; Referring Provider Internal Medicine; Visit Provider Internal Medicine
DX: I11.0 Hypertensive heart disease with heart failure (principal); I50.9 Heart failure, unspecified; R06.00 Dyspnea, unspecified
CPT/HCPCS: 36415; 71046; 80053; 83880; 85025; 85379

== ENCOUNTER → 2025-07-16 08:04 | Outpatient (CLI) | payer MEDICARE, SELFPAY ==
[2024-04-07 07:39] VITALS: BMI 20.7
--- NOTE | 2025-07-16 08:05 | DI.ECHO.S_ITS ---
[facility] : : [address] : : [place] : : [id number] : : Phone: [phone] Echocardiogram Report + + :Name: ZAINAB ARIAS Study Date: 07/16/2025 Height: 70 in : :[facility] ReadingLocation: Weight: 165 lb : : Gender: Male BSA: 1.9 m2 : :: 1945 Age: 80 yrs BP: 157/68 mmHg: :Reason For Study: STATUS POST AVR : :Ordering Physician: KAIT, : :PASCUAL Douglas Performed By: Rl Adame : :Referring: PASCUAL CARBALLO : + + Interpretation Summary - The left ventricular contractility is moderately compromised. Estimated ejection fraction is approximately 30 to 35% with global hypokinesis. Mild concentric LVH. Unable to comment on diastolic function. - The right ventricular contractility is normal. - Four-chamber cardiac enlargement with LVEDD of 6.2 cm. - Moderate to severe mitral annular calcifications. No obvious mitral stenosis noted. Mild mitral regurgitation noted. - Bioprosthetic valve in the aortic position with severe intra valvular insufficiency. Higher than expected gradients is noted through the aortic valve with peak velocity of 3.2 m/s and a mean gradient of 23 mmHg. - Mild tricuspid regurgitation with estimated pulmonary systolic artery pressures of 45 mmHg. - No obvious intracardiac shunts. - Hyperechogenic linear densities noted in the right atrium and right ventricle. However they are only clearly seen in 1 view which may represent artifact. - No hemodynamically significant pericardial effusion. - Low right-sided filling pressures. - Severely dilated aortic root without obvious dissection. Conclusion: Moderately compromised left ventricular systolic function with four-chamber cardiac enlargement and failed bioprosthetic aortic valve. When compared with previous echocardiogram, there is a significant decline in the left ventricular systolic function with increase in all cardiac chambers and worsening degeneration of the bioprosthetic aortic valve. Procedure: A two-dimensional transthoracic echocardiogram with color flow and Doppler was performed. The study quality was technically good. Comparison is made with the echocardiogram of 04/07/2024. The patient was in normal sinus rhythm during the exam. Left Ventricle: The left ventricle is mildly dilated. Left ventricular wall thickness is mildly increased. There is no ventricular septal defect visualized. The ejection fraction is estimated to be 30-35%. There is moderate global hypokinesis of the left ventricle. Right Ventricle: The right ventricle is mildly dilated. Right ventricular systolic function is mildly reduced. Atria: The left atrium is severely dilated. The right atrium is severely dilated. There is no Doppler evidence for an interatrial shunt. Mitral Valve: There is moderate mitral annular calcification. The mitral valve leaflets appear mildly thickened. The mitral valve leaflets are mildly calcified. There is a flat closure plane of the the mitral valve leaflets. There is mild mitral regurgitation. Aortic Valve: There is a bioprosthetic aortic valve. The peak aortic velocity is 3.21 m/sec. The aortic valve mean gradient is 23.2 mmHg. The calculated aortic valve area is 0.7 cm2. There is severe aortic regurgitation. Tricuspid Valve: The tricuspid valve leaflets are thin and pliable. There is mild to moderate tricuspid regurgitation. The right ventricular systolic pressure is estimated to be at least 45 mmHg based on an estimated right atrial pressure of 3 mm Hg. Pulmonic Valve: The pulmonic valve is not well seen, but is grossly normal. There is trace pulmonic regurgitation. Great Vessels: The aortic root is severely dilated. The dimensions of the ascending aorta are normal. The pulmonary artery is normal size. The IVC is of normal diameter and collapses greater than 50% with a sniff. This suggests a low right atrial pressure of 3 mm Hg. Pericardium/ Pleura There is no pericardial effusion. There is no pleural effusion. MMode/2D Measurements & Calculations LVIDd: 6.2 cm LVOT diam: 2.0 cm LVIDs: 5.0 cm Ao root diam: 5.3 cm FS: 19.6 % asc Aorta Diam: 3.4 cm EPSS: 2.3 cm IVSd: 1.3 cm LVPWd: 1.3 cm LV canchola. diameter/BSA (cm/m^2): 3.2 LV sys. diameter/BSA (cm/m^2): 2.6 LA A2 area: 24.7 cm2 RA long axis: 5.6 cm LA A4 area: 23.5 cm2 RA area: 23.2 cm2 LA length (vol): 5.5 cm RA vol: 80.7 ml LA vol: 89.7 ml RA : 42.0 ml/m2 LA vol index: 46.6 ml/m2 IVC diam: 1.7 cm RVD1 (basal): 4.3 cm RVD2 (mid): 3.0 cm TAPSE: 1.7 cm Doppler Measurements & Calculations Ao V2 max: 320.7 cm/sec LVOT Max Sloan: 85.1 cm/sec Ao V2 mean: 229.8 cm/sec LV V1 max P.9 mmHg Ao max P.1 mmHg LV V1 VTI: 17.7 cm Ao mean P.2 mmHg HUA(I,D): 0.77 cm2 Ao V2 VTI: 72.6 cm HUA(V,D): 0.84 cm2 sev ratio: 0.24 HUA indexed to BSA (cm^2/m^2): 0.40 AI P1/2t: 185.9 msec AI dec slope: 795.2 cm/sec2 MV E max sloan: 92.8 cm/sec TR max sloan: 325.4 cm/sec MV A max sloan: 71.4 cm/sec TR max P.4 mmHg MV E/A: 1.3 PA V2 max: 54.4 cm/sec Med Peak E' Sloan: 3.9 cm/sec PA V2 mean: 44.6 cm/sec E/E' med: 24.0 PA mean P.82 mmHg Lat Peak E' Sloan: 4.7 cm/sec PA pr(Accel): 53.3 mmHg E/E' lat: 19.8 E/e' average: 21.9 MV dec time: 0.11 sec SV(LVOT): 56.0 ml Reading Physician:AM
--- NOTE | 2025-07-16 08:05 | DI.CT.S_ITS ---
PROCEDURE: CT ANGIO CHEST INDICATIONS: RULE OUT EMBOLUS TECHNIQUE: After the administration of intravenous contrast, 2.5 mm thick sections acquired from the lung apices to the posterior lung bases. Maximum intensity projection (MIP) oblique sagittal reformats were then acquired parallel to the aortic arch. For radiation dose reduction, the following was used: automated exposure control. COMPARISON: None. FINDINGS: Image quality: Diagnostic Lungs and pleura: Scattered scarring and atelectasis. No airspace consolidation or pleural effusion. Small pulmonary nodules are present for example 4 mm nodule in the right upper lung. Mediastinum, heart, and esophagus: No acute pulmonary embolism. Large cardiomegaly. Small hiatal hernia. Dense mitral annulus calcifications. Diffuse coronary calcifications. Aortic valvular and annular calcifications also seen. Presumed ascending aortic postsurgical changes a not well assessed. Mid ascending aorta measures 4.1 cm. Arch measures 4 cm. Mediastinal clips. No enlarged lymph nodes by size criteria Main pulmonary artery is dilated at 3.6 cm. Chest wall and thyroid: Unremarkable Upper abdomen: Right lobe granuloma. Subcentimeter segment 8 lesion is too small to characterize, probably a cyst. Bones: There are degenerative osseous changes. Sternotomy sequelae. No aggressive appearing osseous abnormality. IMPRESSION: No acute pulmonary embolism. Suspect mediastinal and ascending aortic postsurgical changes. No relevant comparisons are available. 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 Dense mitral annulus calcifications. Coronary, aortic annulus and valvular calcifications also seen. Cardiomegaly. Distended main pulmonary artery, which can be seen with elevated pulmonary pressures. Small pulmonary nodules up to 4 mm. Optional follow-up chest CT may be obtained if the patient is considered at elevated risk for pulmonary malignancy. Other findings above. Dictated by: Pravin Kimbrough M.D. on 07/16/2025 at 9:44 Approved by: Pravin Kimbrough M.D. on 07/16/2025 at 9:49
== END ==
LOC: ECHO 08:05
PROVIDERS: PCP Internal Medicine; Referring Provider Internal Medicine; Visit Provider Internal Medicine
DX: I26.99 Other pulmonary embolism without acute cor pulmonale (principal); I34.81 Nonrheumatic mitral (valve) annulus calcification; R06.00 Dyspnea, unspecified; R91.8 Other nonspecific abnormal finding of lung field; I51.7 Cardiomegaly; K44.9 Diaphragmatic hernia without obstruction or gangrene; I25.10 Atherosclerotic heart disease of native coronary artery without angina pectoris; Z95.2 Presence of prosthetic heart valve; I77.810 Thoracic aortic ectasia
CPT/HCPCS: 71275; 93306; Q9967